=== PATIENT | male | born 1945 | race Caucasian/White ===

== ENCOUNTER → 2023-09-26 09:47 | Outpatient (REF) | payer MEDICARE, SELFPAY ==
[2023-09-26 10:31] LABS: % Eosinophils 1.5 % (0-6); % Immature Granulocytes 0.2 % (0-0.5); % Lymphocytes 37.6 % (20.5-51.1); % Monocytes 7.9 % (1.7-9.3); % Neutrophils 52.8 % (42.2-75.2); Absolute Eosinophils 0.1 10^3/uL (0-0.7); Absolute Lymphocytes 1.8 10^3/uL (1.2-3.4); Absolute Monocytes 0.4 10^3/uL (0.1-0.6); Absolute Neutrophils 2.5 10^3/uL (1.4-6.5); Hematocrit 41.9 % (39.0-52.0); Hemoglobin 14.4 g/dL (13.0-18.0); Mean Corp Hgb Conc. 34.4 g/dL (33.0-37.0); Mean Corpuscular Hgb 32.6 pg (27.0-31.0); Mean Corpuscular Volume 94.8 fL (80.0-94.0); Mean Platelet Volume 9.5 fL (7.4-10.4); Nucleated Red Blood Cells % 0 % (-); Platelet Count 185 10^3/uL (130-400); Red Blood Cell Count 4.42 10^6/uL (4.70-6.10); Red Cell Dist. Width 12.4 % (11.5-14.5); White Blood Cell Count 4.7 10^3/uL (4.8-10.8)
[2023-09-26 10:53] LABS: Urine Albumin Negative (Neg - Trace); Urine Bilirubin Negative (Negative); Urine Character Clear (Clear); Urine Color Yellow; Urine Glucose Negative (Negative); Urine Ketone Negative (Negative); Urine Leukocyte Negative (Negative); Urine Nitrite Negative (Negative); Urine Occult Blood Negative (Negative); Urine Specific Gravity 1.015 (<1.030); Urine Urobilinogen Negative (Neg - 1+)
[2023-09-26 10:59] LABS: ALT (SGPT) 34 U/L (0-50); AST (SGOT) 38 U/L (17-59); Albumin 4.3 g/dl (3.5-5.0); Alkaline Phosphatase 56 U/L (38-126); Blood Urea Nitrogen 22 mg/dl (9-20); Calcium 8.9 mg/dl (8.4-10.2); Carbon Dioxide 26 mmol/L (22-30); Chloride 103 mmol/L (98-107); Glucose 96 mg/dl (70-99); HDL Cholesterol 38 mg/dl; LDL Cholesterol, Calculated 180 mg/dl; Potassium 4.7 mmol/L (3.5-5.1); Sodium 135 mmol/L (135-145); Total Bilirubin 0.8 mg/dl (0.2-1.3); Total Cholesterol 241 mg/dl (50-199); Total Protein 6.7 g/dl (6.3-8.2); Triglyceride 116 mg/dl (10-149); Very Low Density Lipoprotein 23 mg/dl (0-30); eGFR > 60.00
[2023-09-26 11:32] LABS: TSH 2.54 uIU/ml (0.47-4.68)
== END ==
LOC: REG 09:47
PROVIDERS: ATTENDING PHYSICIAN Internal Medicine
DX: I10 Essential (primary) hypertension (principal); E78.2 Mixed hyperlipidemia; I48.0 Paroxysmal atrial fibrillation; R42 Dizziness and giddiness
CPT/HCPCS: 36415; 80053; 80061; 81003; 84443; 85025

== ENCOUNTER 2023-11-25 08:44 | Inpatient (IN) | payer MEDICARE, SELFPAY ==
[2023-11-25] VITALS (7 sets, daily range): BP systolic 123–159; BP diastolic 71–97; BMI 30.1
--- NOTE | 2023-11-25 09:31 | W.PN.CARDCBS ---
Addendum entered and electronically signed by Keshav Davila MD 11/25/23 15:00:
He has a complex past medical history which includes both atrial fibrillation and mitral regurgitation.
He was initially evaluated for atrial fibrillation in 2011.
- ECHO 2011 found to have severe mitral regurgitation with flow reversal in the pulmonary veins observed. He was referred for cardiothoracic surgery.
- ORLIN (intra-op) October 2011 demonstrated prolapsed posterior mitral leaflet in the P2 segment, redundant chordae in the submitral apparatus, especially the chordae attached to anterior mitral leaflet. No flail is seen on the study. There is a mild
mitral regurgitation at best with a systolic blood pressure of 130 mmHg. Dilated mitral annulus, it measures 3.6 cm in long axis view, 5 cm in the commissural view. When the blood pressure was brought up to 170/80, the mitral regurgitation became
mild to moderate with a vena contracta 0.33 cm. No evidence of systolic flow reversal in pulmonary veins. Because intra-op ORLIN failed to demonstrate significant MR, surgery was not performed.
He subsequently underwent PVI November 30, 2011.
- TTE September 22, 2014 demonstrated mildly dilated left atrium bileaflet mitral valve prolapse with posterior being more prominent and again moderate to severe mitral regurgitation being noted by transthoracic echocardiogram.
LV Diastolic Diameter 5.6 cm and LV Systolic Diameter 3.8 cm
- TTE October 12, 2015 finds normal left ventricular size and function, EF 55 to 60%. Bileaflet mitral valve prolapse with the posterior leaflet being more prominent. Probably moderate mitral regurgitation.
LV Diastolic Diameter 5.1 cm and LV Systolic Diameter 3.2 cm
- TTE December 10, 2017 finds normal left ventricular size and function ejection fraction 55%. Mildly dilated left atrium and mildly dilated right atrium. Bileaflet mitral valve prolapse with mild to moderate mitral regurgitation.
LV Diastolic Diameter 5.0 cm and LV Systolic Diameter 3.4 cm
- TTE March 29, 2020 finds normal LV size and function. Bileaflet mitral prolapse with moderate which regurgitation. Left atrium is mildly dilated
LV Diastolic Diameter 5.9 cm and LV Systolic Diameter 3.9 cm
He underwent coronary artery bypass grafting surgery May 05, 2020.
- ORLIN IntraOp for his coronary bypass grafting surgery demonstrated LVEF of 40-45% with redundant bileaflet prolapse. Mitral valve annulus is noted to be markedly dilated. Mitral regurgitation was assessed at mild to moderate.
- TTE June 21, 2020 (Post-op CABG) finds overall preserved LVEF with anterior and anteroseptal hypokinesis felt to be postoperative state, LVEF 55 to 60%.
LV Diastolic Diameter 5.8 cm and LV Systolic Diameter 3.9 cm
He recurred with atrial fibrillation and underwent EP study and ablation June 25, 2022 reisolating the pulmonary veins.
Due to recurrences he again underwent left-sided mapping and ablation isolating the pulmonary veins and isolating the posterior wall of the left atrium 2022
Due to recurrences of atrial fibrillation he is now admitted for sotalol loading. He is more short of breath. He has been in atrial fibrillation for at least several weeks now. He presents with some component of decompensated heart failure.
- TTE today November 25, 2023 finds normal LV EF at 60 to 65%. There is now severe left atrial and right atrial dilatation. Mitral regurgitation is noted to be moderate to severe.
LV Diastolic Diameter 5.5 cm and LV Systolic Diameter 3.5 cm. LV wall thickness is measured at 1.3 and 1.4 cm.
Patient seen, interviewed and examined by me.
Well-appearing, no acute distress
Irregular rate and rhythm with normal S1 and S2, no S3 no S4. There is a grade 1/6 apical holosystolic murmur and no rubs. PMI is normally placed.
Lungs are clear to auscultation bilaterally without wheezes rales or rhonchi.
Abdomen soft nontender nondistended with normoactive bowel sounds
Extremities show trace pretibial edema bilaterally no clubbing or cyanosis.
Neurologic exam is grossly nonfocal.
Agree with advanced practice professionals assessment and plan as noted below.
Going forward we will plan for diuresis for acute decompensated HFpEF which is likely been precipitated by atrial fibrillation. However given his known mitral valve disease it is possible that mitral regurgitation is playing a role as well. Will
plan for diuresis, sotalol loading and then cardioversion. Once we have obtained and if we can maintain sinus rhythm we will need to be reassessment of his mitral regurgitation with consideration for intervention either transcatheter or surgical.
Given his prior coronary artery bypass grafting surgery a transcatheter approach rather than a reoperative may be preferable if ultimately clinically indicated and feasible.
ECG today atrial fibrillation at a heart rate of 52 bpm corrected QT interval is 450 ms
Echocardiogram today with LVH but wall thickness less than 1.5 cm.
Will proceed with sotalol loading, hold beta-clarita.
Original Note:
Today's Communication / Plan
-
Start sotalol 120 mg BID now
Check pro-BNP
Impression / Plan
-
Primary Care Provider: Dr. Adler
Primary Ham Smoker: Dr. Pepe Davila
IMPRESSION:
Direct admission for sotalol loading
Persistent Afib
s/p PVI 11/30/11
post-op CABG recurred with Afib, previous therapy with propafenone stopped due to ineffectiveness 04/2020
s/p PVI 06/25/22
s/p PVI 11/21/22
Chronic Xarelto OAC
HTN
Increased LE edema and HANSEN
CAD s/p CABG with FLORES to LAD, SVG to OM1 05/05/2020
Moderate to severe MR by echo 06/21/20
Hyperlipidemia
h/o myalgias/weakness with simvastatin and Lipitor
Factor V Leiden
History of DVT
Echocardiogram 04/18/2020: Ejection fraction 50%, bileaflet mitral valve prolapse with moderate MR
Echo 06/21/20: EF 55-60%, stage I diastolic dysfunction, mod to sev eccentric MR, mild TR, dilated aortic root with Sinus of Valsalva measuring 4.4 cm., sinotubular junction measures 4.2 cm.; ascending aorta measures 4.0 cm.
PLAN:
-Patient came to today for direct admission for sotalol loading for persistent Afib. Patient with previous PVI 11/30/11 and then recurred after CABG 04/2020 and was managed with amiodarone for a period of time and then it was stopped. He then had
a recurrent PVI 06/25/22. He recurred with Afib and had another PVI 11/21/22. Most recently he has recurred with Afib and does not always feel palpitations, but feels SOB, HANSEN and sometimes still feels palpitations. He says he is tired. He has
increased LE edema that is worse following discontinuation of HCTZ at last office visit 10/31/23. No orthopnea.
-Start sotalol 120 mg BID
-Labs including CMP and CBC pending. Will add on pro-BNP.
-Increased LE edema without rales and no orthopnea. Await results of pro-BNP. Patient reports LE edema is worse after stopping HCTZ almost 1 month ago. Consider a dose of Lasix pending labs.
-QTc 446 in Afib on ECG reviewed by me.
-No missed doses of Xarelto which he takes for Afib and also for h/o Factor V Leiden and DVT.
-Will plan on CV on Saturday if he does not spontaneously convert
-HTN initially this AM, he missed his dose of Toprol XL 50 mg this AM, will order now
Progress Note - Ham Smoker
Subjective
Date of Service: November 25, 2023
He feels fine at rest, but has HANSEN with walking
Objective
Labs:
Ordered CMP, CBC and pro-BNP, pending
Vital Signs and I&O:
Vital Signs
Temp Pulse Resp BP Pulse Ox
98.2 F 86 18 159/85 98
11/25/23 09:04 11/25/23 09:04 11/25/23 09:04 11/25/23 09:04 11/25/23 09:04
Vital Signs
Temp Pulse Resp BP Pulse Ox
98.2 F 86 18 159/85 98
11/25/23 09:04 11/25/23 09:04 11/25/23 09:04 11/25/23 09:04 11/25/23 09:04
Physical Exam
Physical Exam
GEN: NAD, AAOx3
HEENT: EOMI, MMM
LUNGS: CTA B/L without rales
CV: Irreg irreg, S1/S2, no murmur
ABD: soft, BS+, NT, ND
EXT: +1 B/L LE edema
NEURO: Gross non-focal
SKIN: Warm, dry and pink. No rash
[2023-11-25 09:58] LABS: Hematocrit 37.2 % (39.0-52.0); Hemoglobin 12.9 g/dL (13.0-18.0); Mean Corp Hgb Conc. 34.7 g/dL (33.0-37.0); Mean Corpuscular Hgb 32.2 pg (27.0-31.0); Mean Corpuscular Volume 92.8 fL (80.0-94.0); Mean Platelet Volume 10.4 fL (7.4-10.4); Platelet Count 197 10^3/uL (130-400); Red Blood Cell Count 4.01 10^6/uL (4.70-6.10); Red Cell Dist. Width 13.6 % (11.5-14.5)
--- NOTE | 2023-11-25 10:07 | PTCARENOTE ---
patient is a direct admit, notified Salome SALCIDO. patient placed on monitor, Afib, BP 159/85. INT placed in left arm #22P, blood work drawn and sent to lab. EKG done. patient oriented to room and surroundings.
[2023-11-25 10:37] LABS: NT-proBNP 3050 pg/ml
[2023-11-25 10:51] LABS: ALT (SGPT) 47 U/L (0-50); AST (SGOT) 41 U/L (17-59); Albumin 3.9 g/dl (3.5-5.0); Alkaline Phosphatase 57 U/L (38-126); Blood Urea Nitrogen 23 mg/dl (9-20); Calcium 9.2 mg/dl (8.4-10.2); Carbon Dioxide 28 mmol/L (22-30); Chloride 105 mmol/L (98-107); Estimated Creatinine Clearance 78 ml/min; Glucose 84 mg/dl (70-99); Magnesium 1.8 mg/dl (1.6-2.3); Potassium 4.9 mmol/L (3.5-5.1); Sodium 135 mmol/L (135-145); Total Bilirubin 0.6 mg/dl (0.2-1.3); Total Protein 6.2 g/dl (6.3-8.2); eGFR > 60.00
[2023-11-25] MEDS: TOPROL XL 50 MG PO (11:16)
[2023-11-25] MEDS: BETAPACE 120 MG PO ×2 (11:16→22:43)
--- NOTE | 2023-11-25 11:19 | PTCARENOTE ---
echo being completed at bedside.
--- NOTE | 2023-11-25 12:18 | CM ---
spoke with pt in room, he is prev indep, lives with his s.o. in a 2 story homewith 4 steps to enter. he has a cane at home to use if needed. he denies any dc planning needs. plan is for dc to home when medically stable.
--- NOTE | 2023-11-25 14:53 | PTCARENOTE ---
on monitor patient showing HR dipping in the 30's, with pauses, asymptomatic. BP 124/77, EKG obtained and QTC 450. eneida SALCIDO aware.
--- NOTE | 2023-11-25 16:29 | W.PN.UPDATE ---
Update Note
Progress Note Update
Tele reviewed and patient with less than 2 second pauses. ECG 2 hours after first dose of sotalol 120 mg BID the QTc was 450 ms. Cont sotalol 120 mg BID. Decreased Toprol XL to 25 mg daily starting in AM. If more bradycardic or symptomatic then
might need to stop Toprol XL.
[2023-11-25] MEDS: LASIX 20 MG IV (16:50)
[2023-11-25] MEDS: FLUSH (NSS) 1 FLUSH IV (16:52)
[2023-11-25] MEDS: XARELTO 20 MG PO (17:29)
[2023-11-26] VITALS (8 sets, daily range): BP systolic 93–146; BP diastolic 60–95; BMI 29.5
--- NOTE | 2023-11-26 01:39 | PTCARENOTE ---
Sotalol dose #2 administered. Ekg obtained. QTc 488. Tele remains afib. HR 40-60s. Offers no c/o at this time. Currently in bed; call nayla w/in reach.
[2023-11-26 02:27] LABS: Blood Urea Nitrogen 26 mg/dl (9-20); Calcium 9.1 mg/dl (8.4-10.2); Carbon Dioxide 27 mmol/L (22-30); Chloride 103 mmol/L (98-107); Estimated Creatinine Clearance 78 ml/min; Glucose 104 mg/dl (70-99); Potassium 4.2 mmol/L (3.5-5.1); Sodium 137 mmol/L (135-145); eGFR > 60.00
--- NOTE | 2023-11-26 07:46 | W.PN.CARDCBS ---
Addendum entered and electronically signed by Emerson Medina MD 11/26/23 12:01:
I saw and examined the patient.
The SLIP COVER ESTIMATOR or PA's note was reviewed and I agree with the note.
Comment: General: Well developed, well nourished in NAD.
Neck: Supple, no JVD, HJR, carotids +2 B/L, no bruits bilaterally.
Heart: Non displaced PMI, Irreg,, no murmurs, No S3, S4, no rubs.
Lungs: Clear to auscultation bilaterally, no wheeze, rhonchi, rubs bilaterally,
normal expiratory phase.
Extremities: No clubbing, cyanosis or edema bilaterally.
Neuro: Grossly nonfocal, awake, alert and oriented x3.
He is doing well. Tolerating sotalol load remains in A-fib. Will give an additional dose of Lasix 40 mg IV now. For cardioversion on 11/26 and discharge afterwards.
Original Note:
Today's Communication / Plan
-
Lasix 40 mg IV x1 now
Adding tubigrips
Cont sotalol 120 mg BID
CV in AM
Impression / Plan
-
Primary Care Provider: Dr. Adler
Primary Invoice Clerk: Dr. Pepe Davila
IMPRESSION:
Direct admission for sotalol loading
Persistent Afib
s/p PVI 11/30/11
post-op CABG recurred with Afib, previous therapy with propafenone stopped due to ineffectiveness 04/2020
s/p PVI 06/25/22
s/p PVI 11/21/22
Chronic Xarelto OAC
HTN
Increased LE edema and HANSEN
CAD s/p CABG with FLORES to LAD, SVG to OM1 05/05/2020
Moderate to severe MR by echo 06/21/20
Hyperlipidemia
h/o myalgias/weakness with simvastatin and Lipitor
Factor V Leiden
History of DVT
Acute HFpEF
Echo 04/18/20: Ejection fraction 50%, bileaflet mitral valve prolapse with moderate MR
Echo 06/21/20: EF 55-60%, stage I diastolic dysfunction, mod to sev eccentric MR, mild TR, dilated aortic root with Sinus of Valsalva measuring 4.4 cm., sinotubular junction measures 4.2 cm.; ascending aorta measures 4.0 cm.
Echo 11/25/23: EF 60-65%, severe biatrial dilatation, mod to sev MR, mild aortic insufficiency, mod TR with PAP 55-60 mmHg
PLAN:
-Patient with increased LE edema and HANSEN on admission for sotalol loading. HCTZ had been stopped at 10/31/23 office visit. Checked pro-BNP that was elevated at 3050. Patient was given Lasix 20 mg IV x1 11/25/23 afternoon and weight is down 5 lbs
overnight, but no reported symptomatic improvement. Cre stable at 1.0 so will give another dose of Lasix 40 mg IV x1 on 11/26/23 AM.
-Salt and fluid restrictions added to diet
-Potassium stable at 4.2. Check BMP in AM
-Overnight tele reviewed and patient with ongoing Afib and slow ventricular escape, no significant pauses
-Outpatient dose of Toprol XL stopped 11/25/23 due to bradycardia
-Cont sotalol 120 mg BID. QTc stable at 488 ms by ECG 2 hours after second dose that was given 11/25/23 PM
-No missed doses of Xarelto which he takes for Afib and also for h/o Factor V Leiden and DVT.
-Will plan on CV on Saturday if he does not spontaneously convert
-BP stable with usual dose of lisinopril 40 mg daily. Follow BP now that Toprol XL has been stopped
HPI: Patient came to today for direct admission for sotalol loading for persistent Afib. Patient with previous PVI 11/30/11 and then recurred after CABG 04/2020 and was managed with amiodarone for a period of time and then it was stopped. He then
had a recurrent PVI 06/25/22. He recurred with Afib and had another PVI 11/21/22. Most recently he has recurred with Afib and does not always feel palpitations, but feels SOB, HANSEN and sometimes still feels palpitations. He says he is tired. He has
increased LE edema that is worse following discontinuation of HCTZ at last office visit 10/31/23. No orthopnea.
Progress Note - Invoice Clerk
Subjective
Date of Service: November 26, 2023
He is worried about LE edema
Objective
Labs:
11/25/23 09:41
11/26/23 01:34
Labs
Hgb 12.9 g/dL (13.0-18.0) L 11/25/23 09:41
Hct 37.2 % (39.0-52.0) L 11/25/23 09:41
Plt Count 197 10^3/uL (130-400) 11/25/23 09:41
Sodium 137 mmol/L (135-145) 11/26/23 01:34
Potassium 4.2 mmol/L (3.5-5.1) 11/26/23 01:34
BUN 26 mg/dl (9-20) H 11/26/23 01:34
Creatinine 1.0 mg/dL (0.7-1.3) 11/26/23 01:34
Glucose 104 mg/dl (70-99) H 11/26/23 01:34
Vital Signs and I&O:
Vital Signs
Temp Pulse Resp BP Pulse Ox
98.5 F 61 16 133/80 96
11/26/23 01:38 11/26/23 01:30 11/26/23 01:38 11/26/23 01:27 11/26/23 01:38
Vital Signs
Temp Pulse Resp BP Pulse Ox
98.5 F 61 16 133/80 96
11/26/23 01:38 11/26/23 01:30 11/26/23 01:38 11/26/23 01:27 11/26/23 01:38
Intake & Output
11/24/23 11/25/23 11/26/23 11/27/23
06:59 06:59 06:59 06:59
Intake Total 240 / 240
Output Total 2800 / 2800
Balance -2560 / -2560
Physical Exam
Physical Exam
GEN: AAOx3
HEENT: EOMI
LUNGS: No audible wheeze
CV: Afib on tele
ABD: ND
EXT: +1 B/L LE edema
NEURO: Gross non-focal
SKIN: No rash
[2023-11-26] MEDS: THERAGRAN 1 TABLET PO (08:15)
[2023-11-26] MEDS: ASPIR LOW (ENTERIC COATED) 81 MG PO (08:15)
[2023-11-26] MEDS: ZESTRIL 40 MG PO (08:15)
[2023-11-26] MEDS: BETAPACE 120 MG PO (10:00)
[2023-11-26] MEDS: LASIX 40 MG IV (10:00)
[2023-11-26] MEDS: XARELTO 20 MG PO (17:17)
--- NOTE | 2023-11-26 18:00 | PTCARENOTE ---
Pt remains in controlled afib, rate in the 50's to 70's. Denies any chest pain or sob. OOB ad jamal in the room. Tubigrips applied to lower legs as ordered.
--- NOTE | 2023-11-26 21:36 | W.PN.UPDATE ---
Update Note
Progress Note Update
-per Dr. Davila, tonight's dose of Sotalol was held and am dose decreased to 80 mg d/t bradycardia 50s.
--- NOTE | 2023-11-26 23:00 | PTCARENOTE ---
Pt.'s HR running high 40's to mid 50's at rest (A-fib) and occasionally dipping into the high 30's (asymptomatic). SBP 93-108. Pt. due for sotalol. Dr. Pepe Davila, notified, instructed to hold tonight's dose and decrease to 80mg in AM.
Orders entered by Nato Gonzalez PA. Pt. resting quietly without any complaints.
[2023-11-27 02:53] VITALS: BP 135/83
[2023-11-27 03:08] VITALS: BMI 29.1
[2023-11-27 03:42] LABS: Blood Urea Nitrogen 31 mg/dl (9-20); Calcium 9.1 mg/dl (8.4-10.2); Carbon Dioxide 26 mmol/L (22-30); Chloride 102 mmol/L (98-107); Estimated Creatinine Clearance 78 ml/min; Glucose 97 mg/dl (70-99); Sodium 134 mmol/L (135-145); eGFR > 60.00
[2023-11-27 06:58] VITALS: BP 139/92
--- NOTE | 2023-11-27 08:21 | W.PN.UPDATE ---
Update Note
Progress Note Update
unsuccssful cardioversion attempts x 3 ( 200.360, 360). Reviewed with Dr Keshav Davila who was present for third attempt.
Tx plan being coordinated by Dr Davila
--- NOTE | 2023-11-27 09:05 | W.PN.CARDCBS ---
Today's Communication / Plan
-
ORLIN in AM
Stop sotalol
Impression / Plan
-
Primary Care Provider: Dr. Adler
Primary Pattern Ruler: Dr. Pepe Davila
IMPRESSION:
Direct admission for sotalol loading
sotalol loaded with 4 doses and then stopped due to unsuccessful CV 11/27/23
Persistent Afib
s/p PVI 11/30/11
post-op CABG recurred with Afib, previous therapy with propafenone stopped due to ineffectiveness 04/2020
s/p PVI 06/25/22
s/p PVI 11/21/22
unsuccessful CV 11/27/23
Chronic Xarelto OAC
HTN
Increased LE edema and HANSEN
CAD s/p CABG with FLORES to LAD, SVG to OM1 05/05/2020
Moderate to severe MR by echo 06/21/20
Hyperlipidemia
h/o myalgias/weakness with simvastatin and Lipitor
Factor V Leiden
History of DVT
Acute HFpEF
Echo 04/18/20: Ejection fraction 50%, bileaflet mitral valve prolapse with moderate MR
Echo 06/21/20: EF 55-60%, stage I diastolic dysfunction, mod to sev eccentric MR, mild TR, dilated aortic root with Sinus of Valsalva measuring 4.4 cm., sinotubular junction measures 4.2 cm.; ascending aorta measures 4.0 cm.
Echo 11/25/23: EF 60-65%, severe biatrial dilatation, mod to sev MR, mild aortic insufficiency, mod TR with PAP 55-60 mmHg
PLAN:
-Patient initially loaded with sotalol 120 mg BID starting 11/25/23 AM. QTc initially stable, but then up to 501 ms after 3rd dose of sotalol given Saturday morning. Sotalol dose held Saturday night and then restarted at 80 mg on Saturday
morning. Patient then had attempted CV x3 shocks in photo lab manager holding area and failed to convert.
-Will stop sotalol now
-Restart lower dose Toprol XL 25 mg daily and hold for HR less than 55.
-Cont Xarelto OAC
-Patient with increased LE edema and HANSEN on admission for sotalol loading. HCTZ had been stopped at 10/31/23 office visit. pro-BNP was elevated at 3050. Patient was given Lasix 20 mg IV x1 11/25/23 afternoon and 40 mg IV x1 on 11/26/23. Overall weight is
down 9 lbs from admission. Cre stable at 1.0.
-BP stable with usual dose of lisinopril 40 mg daily.
-Patient with h/o severe MR by echo in 2011 and intra-op ORLIN 10/2011 demonstrated prolapsed posterior mitral leaflet in the P2 segment, redundant chordae in the submitral apparatus, especially the chordae attached to anterior mitral leaflet. No
flail wass seen on the study. When the blood pressure was brought up to 170/80, the mitral regurgitation became mild to moderate with a vena contracta 0.33 cm. No evidence of systolic flow reversal in pulmonary veins. Ultimately, because intra-op
ORLIN failed to demonstrate significant MR, surgery was not performed. TTE 09/2014 showed mod to sev MR with bileaflet MVP with posterior being more prominent. Patient then had CABG 05/05/20 and intra-op ORLIN at that time showed redundant bileaflet
prolapse, mitral valve annulus markedly dilated and mild to mod MR. With HF on admission his TTE was repeated this admission and EF preserved, but there is now severe left atrial and right atrial dilatation and mod to sev MR.
-Will order ORLIN for AM
HPI: Patient came to today for direct admission for sotalol loading for persistent Afib. Patient with previous PVI 11/30/11 and then recurred after CABG 04/2020 and was managed with amiodarone for a period of time and then it was stopped. He then
had a recurrent PVI 06/25/22. He recurred with Afib and had another PVI 11/21/22. Most recently he has recurred with Afib and does not always feel palpitations, but feels SOB, HANSEN and sometimes still feels palpitations. He says he is tired. He has
increased LE edema that is worse following discontinuation of HCTZ at last office visit 10/31/23. No orthopnea.
Progress Note - Pattern Ruler
Subjective
Date of Service: November 27, 2023
Still with some edema
Objective
Labs:
11/25/23 09:41
11/27/23 03:00
Labs
Hgb 12.9 g/dL (13.0-18.0) L 11/25/23 09:41
Hct 37.2 % (39.0-52.0) L 11/25/23 09:41
Plt Count 197 10^3/uL (130-400) 11/25/23 09:41
Sodium 134 mmol/L (135-145) L 11/27/23 03:00
Potassium 4.0 mmol/L (3.5-5.1) 11/27/23 03:00
BUN 31 mg/dl (9-20) H 11/27/23 03:00
Creatinine 1.0 mg/dL (0.7-1.3) 11/27/23 03:00
Glucose 97 mg/dl (70-99) 11/27/23 03:00
Vital Signs and I&O:
Vital Signs
Temp Pulse Resp BP Pulse Ox
98.1 F 67 18 139/92 95
11/27/23 07:05 11/27/23 07:00 11/27/23 07:05 11/27/23 06:58 11/27/23 02:52
Vital Signs
Temp Pulse Resp BP Pulse Ox
98.1 F 67 18 139/92 95
11/27/23 07:05 11/27/23 07:00 11/27/23 07:05 11/27/23 06:58 11/27/23 02:52
Intake & Output
11/25/23 11/26/23 11/27/23 11/28/23
06:59 06:59 06:59 06:59
Intake Total 240 / 240 480 / 480
Output Total 2800 / 2800 4400 / 4400
Balance -2560 / -2560 -3920 / -3920
Physical Exam
Physical Exam
GEN: AAOx3
HEENT: EOMI
LUNGS: No audible wheeze
CV: Afib on tele
ABD: ND
EXT: +1 B/L LE edema
NEURO: Gross non-focal
SKIN: No rash
[2023-11-27] MEDS: THERAGRAN 1 TABLET PO (09:08)
[2023-11-27] MEDS: ASPIR LOW (ENTERIC COATED) 81 MG PO (09:08)
[2023-11-27] MEDS: ZESTRIL 40 MG PO (10:02)
[2023-11-27 12:13] VITALS: BP 99/68
--- NOTE | 2023-11-27 12:39 | CM ---
CM following for DC planning needs.
Reviewed initial assessment. Pt. resides w/ sig. other in a private, 2 story home. Functionally, pt. is indep w/ use of a SPC.
DC plan is for home, no needs.
CM to cont. to follow.
[2023-11-27 14:32] VITALS: BP 104/71
[2023-11-27] MEDS: XARELTO 20 MG PO (17:09)
--- NOTE | 2023-11-27 17:34 | PTCARENOTE ---
Pt returned from the cardioversion in afib, rate in the 60's to 70's. Pt scheduled to ORLIN tomorrow. Sotolol stopped as ordered. Pt denies any chest pain or sob. OOb ad jamal in the room.
[2023-11-27 19:34] VITALS: BP 116/77
--- NOTE | 2023-11-27 21:41 | PTCARENOTE ---
Assumed care of patient at change of shift. Patient ambulating self in room w/out difficulty. Tele remains Afib, HR in the 50-60's at rest. Denies any pain or discomfort. Pt aware to remain NPO at midnight for ECHO/ORLIN on 11/27. Pt can make all needs
known, call winslow in reach.
[2023-11-27 22:24] VITALS: BP 121/73
[2023-11-28 04:29] VITALS: BP 124/91
[2023-11-28 04:33] VITALS: BMI 29.0
[2023-11-28 07:37] VITALS: BP 130/95
--- NOTE | 2023-11-28 07:38 | W.PN.CARDCBS ---
Addendum entered and electronically signed by Elma Abarca DO 11/28/23 18:20:
I saw and examined the patient.
The System Auditor's note was reviewed and I agree with the note.
Comment: Patient was seen and examined prior to scheduled ORLIN to assess mitral and tricuspid regurgitation. Overall he is feeling better with improved shortness of breath and lower extremity edema. No chest pain or pressure. No palpitations.
Consent signed. ORLIN performed without complications.
General: No acute distress, AAOX3
Neck: Negative JVD
Heart: Irregularly irregular. Positive S1-S2. 2�3 out of 6 systolic murmur heard best at the axilla/back
Lungs: CTA b/l, negative wheezes/rales/rhonchi
Abd: Positive BS, NT/ND, neg rebound/rigidity/guarding
Ext: Negative cyanosis/clubbing/edema
Neuro: nonfocal
Plan:
Presented for sotalol loading for recurrent symptomatic atrial fibrillation
-Unfortunately sotalol discontinued after load due to unsuccessful cardioversion 11/27/2023
-Continue Eliquis anticoagulation
Known mitral valve prolapse with moderate to severe mitral regurgitation and moderate tricuspid regurgitation now with heart failure
-Given recent 2D echocardiogram patient was set up for transesophageal echo today.
-Bileaflet mitral valve prolapse with dilated annulus associated with severe mitral regurgitation with overall preserved biventricular systolic function. Patient also has moderate tricuspid regurgitation and aortic sclerosis with mild aortic
regurgitation.
-Transesophageal echo reviewed with CT surgery and consultation with CT surgery scheduled for next week to discuss surgical options
CAD s/p CABG with FLORES to LAD, SVG to OM1 05/05/2020
-Will need a left heart catheterization as part of preoperative CT surgical evaluation which will be scheduled by our office
New heart failure with preserved ejection fraction status post Lasix with improved symptoms
-He appears euvolemic following IV Lasix
-Start Lasix 20 mg Saturday
-Referred to CT surgery for mitral valve repair, possible tricuspid valve ring, maze and left atrial appendage ligation
History of DVT and factor V Leiden on anticoagulation.
-Noted
Plan for discharge home today with outpatient follow-up being arranged
Original Note:
Today's Communication / Plan
-
ORLIN today
Weight down 9 lbs, no additional Lasix today
Impression / Plan
-
Primary Care Provider: Dr. Adler
Primary Background Check Coordinator: Dr. Pepe Davila
IMPRESSION:
Direct admission for sotalol loading
sotalol loaded with 4 doses and then stopped due to unsuccessful CV 11/27/23
Persistent Afib
s/p PVI 11/30/11
post-op CABG recurred with Afib, previous therapy with propafenone stopped due to ineffectiveness 04/2020
s/p PVI 06/25/22
s/p PVI 11/21/22
unsuccessful CV 11/27/23
Chronic Xarelto OAC
HTN
Increased LE edema and HANSEN
CAD s/p CABG with FLORES to LAD, SVG to OM1 05/05/2020
Moderate to severe MR by echo 06/21/20
Hyperlipidemia
h/o myalgias/weakness with simvastatin and Lipitor
Factor V Leiden
History of DVT
Acute HFpEF
Echo 04/18/20: Ejection fraction 50%, bileaflet mitral valve prolapse with moderate MR
Echo 06/21/20: EF 55-60%, stage I diastolic dysfunction, mod to sev eccentric MR, mild TR, dilated aortic root with Sinus of Valsalva measuring 4.4 cm., sinotubular junction measures 4.2 cm.; ascending aorta measures 4.0 cm.
Echo 11/25/23: EF 60-65%, severe biatrial dilatation, mod to sev MR, mild aortic insufficiency, mod TR with PAP 55-60 mmHg
PLAN:
-Plan is for ORLIN 11/28/23
-Patient with h/o severe MR by echo in 2011 and intra-op ORLIN 10/2011 demonstrated prolapsed posterior mitral leaflet in the P2 segment, redundant chordae in the submitral apparatus, especially the chordae attached to anterior mitral leaflet. No
flail wass seen on the study. When the blood pressure was brought up to 170/80, the mitral regurgitation became mild to moderate with a vena contracta 0.33 cm. No evidence of systolic flow reversal in pulmonary veins. Ultimately, because intra-op
ORLIN failed to demonstrate significant MR, surgery was not performed. TTE 09/2014 showed mod to sev MR with bileaflet MVP with posterior being more prominent. Patient then had CABG 05/05/20 and intra-op ORLIN at that time showed redundant bileaflet
prolapse, mitral valve annulus markedly dilated and mild to mod MR. With HF on admission his TTE was repeated this admission and EF preserved, but there is now severe left atrial and right atrial dilatation and mod to sev MR.
-Patient loaded with sotalol this admission, but failed to convert with attempted CV x3 on 11/27/23. Sotalol stopped.
-Restart lower dose Toprol XL 12.5 mg daily and hold for HR less than 55.
-Cont Xarelto OAC
-Weight is down 9 lbs with Lasix 20 mg IV x1 11/25/23 afternoon and 40 mg IV x1 on 11/26/23. Patient with increased LE edema and HANSEN on admission for sotalol loading. HCTZ had been stopped at 10/31/23 office visit. pro-BNP was elevated at 3050.
-BP stable with usual dose of lisinopril 40 mg daily.
HPI: Patient came to today for direct admission for sotalol loading for persistent Afib. Patient with previous PVI 11/30/11 and then recurred after CABG 04/2020 and was managed with amiodarone for a period of time and then it was stopped. He then
had a recurrent PVI 06/25/22. He recurred with Afib and had another PVI 11/21/22. Most recently he has recurred with Afib and does not always feel palpitations, but feels SOB, HANSEN and sometimes still feels palpitations. He says he is tired. He has
increased LE edema that is worse following discontinuation of HCTZ at last office visit 10/31/23. No orthopnea.
Progress Note - Background Check Coordinator
Subjective
Date of Service: November 28, 2023
He feels less bloated and LE edema has improved
Objective
Labs:
11/25/23 09:41
11/27/23 03:00
Labs
Hgb 12.9 g/dL (13.0-18.0) L 11/25/23 09:41
Hct 37.2 % (39.0-52.0) L 11/25/23 09:41
Plt Count 197 10^3/uL (130-400) 11/25/23 09:41
Sodium 134 mmol/L (135-145) L 11/27/23 03:00
Potassium 4.0 mmol/L (3.5-5.1) 11/27/23 03:00
BUN 31 mg/dl (9-20) H 11/27/23 03:00
Creatinine 1.0 mg/dL (0.7-1.3) 11/27/23 03:00
Glucose 97 mg/dl (70-99) 11/27/23 03:00
Vital Signs and I&O:
Vital Signs
Temp Pulse Resp BP Pulse Ox
97.9 F 66 20 124/91 95
11/28/23 04:28 11/28/23 04:29 11/28/23 04:28 11/28/23 04:29 11/28/23 04:28
Vital Signs
Temp Pulse Resp BP Pulse Ox
97.9 F 66 20 124/91 95
11/28/23 04:28 11/28/23 04:29 11/28/23 04:28 11/28/23 04:29 11/28/23 04:28
Intake & Output
11/26/23 11/27/23 11/28/23 11/29/23
06:59 06:59 06:59 06:59
Intake Total 240 / 240 480 / 480 480 / 480
Output Total 2800 / 2800 4400 / 4400 2049 / 2049
Balance -2560 / -2560 -3920 / -3920 -1570 / -1570
Physical Exam
Physical Exam
GEN: AAOx3
HEENT: EOMI
LUNGS: No audible wheeze
CV: Afib on tele
ABD: ND
EXT: Trace B/L LE edema
NEURO: Gross non-focal
SKIN: No rash
[2023-11-28] MEDS: ZESTRIL 40 MG PO (07:56)
[2023-11-28] MEDS: ASPIR LOW (ENTERIC COATED) 81 MG PO (07:57)
[2023-11-28] MEDS: TOPROL XL 12.5 MG PO (07:57)
--- NOTE | 2023-11-28 11:12 | CM ---
CM following for DC planning needs.
Attempted to meet w/ patient but patient was not in his room.
Pt. is from a private home with sig. other.
Anticipated DC plan is for home, no needs.
CM to follow.
[2023-11-28 11:15] VITALS: BP 115/82
[2023-11-28] MEDS: THERAGRAN 1 TABLET PO (14:34)
--- NOTE | 2023-11-28 14:37 | W.DS.TRANS ---
DC Summary - Certified Paralegal
-
Discharge Instructions:
Discharge Diagnosis/Procedures Unsuccessful sotalol loading and cardioversion
for persistent Afib, severe mitral regurgitation
Diet Restrict fluids to 64 oz,2 Gram Sodium
Activity As tolerated
Driving Restrictions No driving for 24 hours
Bathing Restrictions None
Blood Work -Check non-fasting blood work in 1 week
Specialty Instructions Weigh Daily
Instructions:
Stand-Alone Forms:
Changes to Home Medications: Yes
Discharge Medications:
DC Medications w/original date entered in [facility]
lutein 20 mg tablet 20 mg PO DAILY Supplement 04/15/20
aspirin 81 mg tablet,delayed release 81 mg PO DAILY Blood clot prevention/tx 05/02/20
ydlbjoizvcmz-bytiqaed-hfncnd tablet 1 tab PO DAILY Supplement 06/13/22
omega 4-trw-ebx-fish oil 1,000 mg (120 mg-180 mg) capsule (Fish Oil) 2 cap PO BID Supplement 11/25/23
rivaroxaban 20 mg tablet (Xarelto) 20 mg PO DAILY Blood Clot Prevention/Tx 11/25/23
furosemide 20 mg tablet (Lasix) 20 mg PO MOWEFR Heart Failure #12 tabs 11/28/23
lisinopril 20 mg tablet 20 mg PO BID Blood Pressure #30 tabs 11/28/23
metoprolol succinate 25 mg tablet,extended release 24 hr 12.5 mg (1/2 x 25 mg) PO DAILY Arrhythmia #30 tabs 11/28/23
Home Medication Changes
Lower dose of Toprol XL
New to Lasix
Pending Results: No
[2023-11-28 14:48] VITALS: BP 125/93
--- NOTE | 2023-11-28 15:42 | PTCARENOTE ---
Pt had ORLIN with an uneventful recovery. Pt had CT scans and carotid U/S as ordered. Telemetry and IV devices removed. Discharge instructions reviewed with pt regarding CHF packet, medications and their new doses and possible side effects, reporting
cares and concerns and follow up appt's. Very good understanding verbalized. Pt escorted out via wheelchair and discharged to home.
== END 2023-11-28 15:55 | disposition home or self-care (01) | DRG 308 ==
LOC: IVU 08:44
PROVIDERS: Internal Medicine Cardiovascular Disease; Physician Assistant Medical; ADMITTING PHYSICIAN Internal Medicine Cardiovascular Disease; FAMILY PHYSICIAN Internal Medicine
PROC: 3E0M3GC Introduction of Other Therapeutic Substance into Peritoneal Cavity, Percutaneous Approach (ICD-10-PCS; 2023-11-25)
PROC: 5A2204Z Restoration of Cardiac Rhythm, Single (ICD-10-PCS; 2023-11-27)
DX: I48.19 Other persistent atrial fibrillation (principal); I50.33 Acute on chronic diastolic (congestive) heart failure; D68.51 Activated protein C resistance; I34.0 Nonrheumatic mitral (valve) insufficiency; I11.0 Hypertensive heart disease with heart failure; I25.10 Atherosclerotic heart disease of native coronary artery without angina pectoris; Z79.01 Long term (current) use of anticoagulants; Z95.1 Presence of aortocoronary bypass graft
CPT/HCPCS: 71275; 74174; 80048; 80053; 83735; 83880; 85027; 92960; 93005; 93306; 93312; 93320; 93325; 93880; Q9967

== ENCOUNTER 2023-12-03 06:22 | Day surgery (SDC) | payer MEDICARE, SELFPAY ==
[2023-12-03] VITALS (16 sets, daily range): BP systolic 101–136; BP diastolic 61–83; BMI 29.3
[2023-12-03] MEDS: NSS 1000 IV ×2 (07:42→10:30)
--- NOTE | 2023-12-03 10:34 | ITS.CL.CATH ---
Building Maintenance Repairer - Catheterization
Cardiac Catheterization
Procedure Report:
RIGHT AND LEFT HEART CATHETERIZATION
Date of Procedure: December 03, 2023
Referring: Dr. Keshav Davila, Dr. Messi Cerrato
PROCEDURES:
1. Left heart catheterization with coronary and single-plane left ventriculography
2. Selective saphenous vein graft and LUISITO angiography
INDICATION: Severe mitral regurgitation and atrial fibrillation
ACCESS: Right common femoral artery, 6 Sami sheath
HEMODYNAMICS (mmHg) :
AO (s/d, m) : 117/70, 89
LV (s/d) : 114/11
LVEDP (m) : 16
CORONARY ANGIOGRAPHY
Dominance: Right
LEFT MAIN: Normal
LEFT ANTERIOR DESCENDING: The LAD arises normally from the left main running in the anterior interventricular groove. The proximal LAD has a long 90% stenosis and becomes subtotally occluded in its midportion. There is a patent FLORES graft to the
mid LAD with antegrade and retrograde filling of the LAD. The mid LAD beyond the LUISITO anastomosis has a 60-70% stenosis in the distal LAD reaches the apex but does not wrap completely around the apex. There is retrograde filling through a diffusely
atherosclerotic segment into the proximal LAD.
CIRCUMFLEX: The circumflex is a medium caliber nondominant vessel. OM1 is very small. OM 2 is a small caliber vessel that is subtotally occluded at its origin with sluggish antegrade flow into its midportion. The saphenous vein graft is
anastomosed to the midportion of this vessel and is found to be 100% occluded at its origin.
RIGHT CORONARY ARTERY: The right coronary artery is 100% occluded in its midportion with the distal vessel filling via lpnt-jn-nooln collaterals.
GRAFT ANGIOGRAPHY:
1. SVG-OM 2: 100% occluded at its origin
2. FLORES-LAD: Widely patent and anastomosed to the mid LAD. There is antegrade and retrograde filling of the LAD. Proximal to the LUISITO touchdown the LAD is diffusely diseased. Distal to the LAD there is a 60-70% distal stenosis
LEFT VENTRICULOGRAPHY: Left ventriculography was performed in an ATKINS projection. The digital single-plane left ventricular ejection fraction is estimated at 40% with inferobasal hypokinesis and moderate anterolateral hypokinesis. There is 3+
mitral regurgitation to a dilated left atrium. Mitral leaflet prolapse is appreciated
RADIATION SUMMARY: Fluoro Time (min): 7.7, Dose (mGy): 591.3, DAP (Gy.cm2) : 50.1
Closure Device: 6 Sami Angio-Seal RFA
CONCLUSION
1. Significant [place] vessel coronary artery disease with 100% occlusion of the SVG-small OM 2 and [place] RCA. The FLORES-LAD is patent with apical 60-70% stenosis which I would manage medically in absence of significant anginal symptoms
2. There is 3+ mitral regurgitation, dilated left atrium with mitral prolapse noted
3. Mild LV dysfunction
RECOMMENDATIONS
1. Follow-up with Dr. Cerrato as scheduled
Copy to: Dr. Keshav Davila and Dr. Messi Cerrato
== END 2023-12-03 13:15 | disposition home or self-care (01) ==
LOC: CATH 06:22
PROVIDERS: ATTENDING PHYSICIAN Internal Medicine Interventional Cardiology; FAMILY PHYSICIAN Internal Medicine
DX: I25.10 Atherosclerotic heart disease of native coronary artery without angina pectoris (principal); I34.0 Nonrheumatic mitral (valve) insufficiency; I25.82 Chronic total occlusion of coronary artery; I25.810 Atherosclerosis of coronary artery bypass graft(s) without angina pectoris; I34.1 Nonrheumatic mitral (valve) prolapse; Z79.01 Long term (current) use of anticoagulants; I48.0 Paroxysmal atrial fibrillation; Z79.82 Long term (current) use of aspirin; I10 Essential (primary) hypertension
CPT/HCPCS: 93459; C1760; C1894; Q9967

== ENCOUNTER 2023-12-17 04:53 | Inpatient (IN) | payer MEDICARE, SELFPAY ==
[2023-12-04 08:28] VITALS: BMI 29.4
[2023-12-04 08:58] LABS: % Basophils 0.1 % (0-2); % Eosinophils 1.8 % (0-6); % Immature Granulocytes 0.3 % (0-0.5); % Lymphocytes 33.7 % (20.5-51.1); % Monocytes 6.9 % (1.7-9.3); % Neutrophils 57.2 % (42.2-75.2); Absolute Eosinophils 0.1 10^3/uL (0-0.7); Absolute Lymphocytes 2.6 10^3/uL (1.2-3.4); Absolute Monocytes 0.5 10^3/uL (0.1-0.6); Absolute Neutrophils 4.3 10^3/uL (1.4-6.5); Hematocrit 44.2 % (39.0-52.0); Hemoglobin 15.2 g/dL (13.0-18.0); Mean Corp Hgb Conc. 34.4 g/dL (33.0-37.0); Mean Corpuscular Hgb 31.9 pg (27.0-31.0); Mean Corpuscular Volume 92.9 fL (80.0-94.0); Mean Platelet Volume 9.2 fL (7.4-10.4); Nucleated Red Blood Cells % 0 % (-); Platelet Count 232 10^3/uL (130-400); Red Blood Cell Count 4.76 10^6/uL (4.70-6.10); Red Cell Dist. Width 13.4 % (11.5-14.5); White Blood Cell Count 7.6 10^3/uL (4.8-10.8)
[2023-12-04 08:58] LABS: Urine Albumin Negative (Neg - Trace); Urine Bilirubin Negative (Negative); Urine Character Clear (Clear); Urine Color Yellow; Urine Glucose Negative (Negative); Urine Ketone Negative (Negative); Urine Leukocyte Negative (Negative); Urine Nitrite Negative (Negative); Urine Occult Blood Negative (Negative); Urine Specific Gravity 1.015 (<1.030); Urine Urobilinogen Negative (Neg - 1+)
[2023-12-04 09:05] LABS: INR 1.69
[2023-12-04 09:14] LABS: ALT (SGPT) 22 U/L (0-50); AST (SGOT) 30 U/L (17-59); Albumin 4.4 g/dl (3.5-5.0); Alkaline Phosphatase 65 U/L (38-126); Blood Urea Nitrogen 26 mg/dl (9-20); Calcium 9.6 mg/dl (8.4-10.2); Carbon Dioxide 22 mmol/L (22-30); Chloride 104 mmol/L (98-107); Direct Bilirubin 0.4 mg/dl (0.0-0.4); Estimated Creatinine Clearance 71 ml/min; Glucose 107 mg/dl (70-99); Potassium 4.8 mmol/L (3.5-5.1); Sodium 136 mmol/L (135-145); Total Bilirubin 1.1 mg/dl (0.2-1.3); Total Protein 7.2 g/dl (6.3-8.2); eGFR > 60.00
--- NOTE | 2023-12-04 10:11 | CM ---
Addendum entered by Cristy Cain RN 12/04/23 10:28:
Patient is giving permission to give medical updates to his friend Darling Watson,
Original Note:
Chart reviewed. Met with the patient in PAT. Reviewed preoperative and postoperative instructions, along with restrictions. Gave patient 2 soaps, along with showering instructions. Patient is agreeable to a home visit by CT Transitional RN.
Patient had a CABG [address] his [address] Transitional RN and would love to have her again. Patient is independent of ADLS, lives with his friend in a [address], [address], [address]. Plan is for the patient to return home with CT Transitional RN.
[2023-12-04 10:41] LABS: Glycohemoglobin (HgbA1c) 5.8 % (4.0-5.6)
--- NOTE | 2023-12-16 21:52 | W.PN.CT ---
Assessment / Plan
-
Assessment:
-S/P Redo sternotomy with extensive adhesiolysis, modifier 22, with central aortic and bicaval cannulation/Complex mitral valve repair [40 mm band annuloplasty, 5 pairs of CV 4 [place] placed to going to the anterior leaflet, cleft closure between
P1/P2 and P2/P3, free edge remodeling of the posterior leaflet]/Tricuspid valve repair [34 mm band annuloplasty]/ ASD closure/CABG x 1 [aorto to reverse saphenous vein graft to distal RCA]/ R EVH /Left atrial maze using cryoablation, by Dr. Cerrato,
12/17/23, pod#1
-Severe MR
-Moderate TR
-CAD
-Hx CABG x 2 (FLORES-LAD, SVG-OM1), 05/05/2020
-Persistent A-fib S/P PVI x 3 (11/21/22, 06/25/22, 11/30/11); S/p Cardioversion x 4 (11/27/23, 05/11/20, 05/09/20, 10/31/18)
-Iatrogenic ASD
-Acute on chronic Diastolic CHF
-LVEF 60-65% per echo 11/28/23; EF 45-50% per intraop ORLIN
-Hx of sternal dehiscence
-hx DVT
-Questionable Factor V Leiden
-HTN
-Hyperlipidemia (Statin intolerance)
-Prediabetes (A1C 5.8)
-Class 1 obesity (BMI 30)
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
-Chronic lower back pain
-Chronic postnasal drip
-Childhood Asthma
-LE Edema
-BPH
-Gout
-Psoriasis
-Diverticulosis with hx diverticulitis, 2019
-Colon polyps S/P polypectomy
-S/P inguinal hernia repair
-S/P blepharoplasty
-S/P bilateral cataracts
-S/P R foot surgery
-S/P Tonsillectomy
-Acute postop blood loss/Anemia (stable without PRBC transfusion)
-Acute intraop/postop thrombocytopenia (transfused 1 {5pk} plts)
-Acute postop atelectasis/pleural effusion
-Acute postop tiny right apical ptx (stable)
-Acute postop hypovolemia with subsequent hypervolemia
-Acute intraop/postop mild RV dysfunction (started on low dose dobutamine gtt)
-Acute postop hematuria (stable without clots, no CBI per Urology)
Plan:
-No major issues overnight. Hemodynamically and neurologically intact
-Successfully extubated on 12/17/23 @ 2019
-Pt currently in NSR @ 66 bpm
-Weaned off dobutamine and Levophed gtt overnight, remains on insulin gtt per protocol
-MVO2 60%, U/O since OR
-Chest tube output since OR: 2meds
-Cont. current meds (ASA, Amiodarone, Toprol XL; will discuss Plavix for SVG patency - will likely avoid today given hematuria, will resume Xarelto likely on POD#4)
-Will discuss heparin gtt tomorrow (will likely avoid today since pt currently has hematuria) given a-fib/MAZE/MV repair until able to resume Xarelto
-[place] d/c'd on POD#0
-D/C'd A-line @ this AM
-Tele phase once off insulin gtt today
-Consider keeping [place] catheter another day given hematuria
-Maintain temporary PW (will likely cut since requiring heparin to Xarelto)
-Maintain cordis
-Encourage use of IS
-Wean off of O2 as tolerated
-OOB into chair/Ambulate
-Will obtain repeat echo to evaluate valves/LVEF prior to d/c home
Subjective
-
Date of Service: December 16, 2023
Objective Data
-
Lab Results
12/04/23 08:38
12/04/23 08:38
PT 20.0 Sec (11.4-14.6) H 12/04/23 08:38
INR 1.69 12/04/23 08:38
APTT 34.0 Sec (23.4-35.0) 12/04/23 08:38
[2023-12-17] VITALS (24 sets, daily range): BP systolic 76–150; BP diastolic 58–98; BMI 28.1
[2023-12-17] MEDS: PROTONIX 40 MG PO (05:38)
[2023-12-17] MEDS: BACTROBAN 2% OINTMENT 1 APPLIC NASAL ×2 (05:38→20:43)
[2023-12-17] MEDS: MAGNESIUM OXIDE 500 MG PO (05:38)
[2023-12-17] MEDS: LOPRESSOR 25 MG PO (05:38)
--- NOTE | 2023-12-17 05:56 | PTCARENOTE ---
Pt admitted to room 2265. Pt confirmed 2 showers w/ CHG soap and NPO status since midnight. Vital signs & weight obtained. Admission questions completed. Pt clipped, prepped, and wiped w/ CHG wipes. Pt orientated to room. IS 1999. Questions
encouraged and answered. Ordered medications administered - see SEP.
--- NOTE | 2023-12-17 06:12 | W.CVOR.SURPR ---
CVOR Surgeon Immed Pre Op
-
I have examined this patient prior to performance of the scheduled procedure.
The patient's condition is unchanged from the time of the dictated/written History and
Physical and the patient is able to undergo the scheduled procedure.
Redosternotomy, MV Repair/Replacement, MAZE + YARIEL E, TV Repair, +/- CABG x 1
[2023-12-17 07:22] LABS: Urine Albumin Negative (Neg - Trace); Urine Bilirubin Negative (Negative); Urine Character Clear (Clear); Urine Color Yellow; Urine Glucose Negative (Negative); Urine Ketone Negative (Negative); Urine Leukocyte Negative (Negative); Urine Nitrite Negative (Negative); Urine Occult Blood 2+ (Negative); Urine Specific Gravity 1.015 (<1.030); Urine Urobilinogen Negative (Neg - 1+)
[2023-12-17 07:33] LABS: ACT+ - POC 107 Seconds (82-134)
[2023-12-17 07:42] LABS: B.E. - POC -5.3 mmol/L; Glucose - POC 109 mg/dl (65-99); HCO3 - POC 20 mmol/L (21-29); Hematocrit - POC 39 % PCV (42-52); Hemodilution- POC No; Hemoglobin Calculated - POC 13.3; Ionized Calcium - POC 1.18 mmol/L (1.12-1.27); O2 Saturation %Calculated-POC 99.8 5 (92-96); PCO2 - POC 37 mmHg (35-45); PO2 - POC 228 mmHg (80-100); Sodium - POC 141 mmol/L (135-145); pH - POC 7.34 (7.35-7.45)
[2023-12-17 07:50] LABS: Urine Squamous Cell 0-2 /LPF (Few)
[2023-12-17 07:51] LABS: Urine Bacteria Few (Negative); Urine White Cell 0-2 /HPF (0-5)
--- NOTE | 2023-12-17 09:11 | CM ---
pt i OR today, cm to follow.
[2023-12-17 09:32] LABS: ACT+ - POC 839 Seconds (82-134)
[2023-12-17 10:10] LABS: B.E. - POC 0.2 mmol/L; Glucose - POC 128 mg/dl (65-99); HCO3 - POC 25 mmol/L (21-29); Hematocrit - POC 34 % PCV (42-52); Hemodilution- POC Yes; Hemoglobin Calculated - POC 11.5; Ionized Calcium - POC 1.12 mmol/L (1.12-1.27); PCO2 - POC 41 mmHg (35-45); PO2 - POC 459 mmHg (80-100); Potassium - POC 4.6 mmol/L (3.6-5.0); Sodium - POC 138 mmol/L (135-145); pH - POC 7.39 (7.35-7.45)
[2023-12-17 10:14] LABS: ACT+ - POC 938 Seconds (82-134)
[2023-12-17 10:41] LABS: B.E. - POC -0.9 mmol/L; Glucose - POC 144 mg/dl (65-99); HCO3 - POC 22 mmol/L (21-29); Hematocrit - POC 35 % PCV (42-52); Hemodilution- POC Yes; Hemoglobin Calculated - POC 11.8; Ionized Calcium - POC 1.05 mmol/L (1.12-1.27); PCO2 - POC 31 mmHg (35-45); PO2 - POC 392 mmHg (80-100); Sodium - POC 137 mmol/L (135-145); pH - POC 7.46 (7.35-7.45)
[2023-12-17 10:51] LABS: ACT+ - POC 839 Seconds (82-134)
[2023-12-17 11:18] LABS: B.E. - POC -1.3 mmol/L; Glucose - POC 145 mg/dl (65-99); HCO3 - POC 22 mmol/L (21-29); Hematocrit - POC 35 % PCV (42-52); Hemodilution- POC Yes; Ionized Calcium - POC 1.02 mmol/L (1.12-1.27); PCO2 - POC 31 mmHg (35-45); PO2 - POC 349 mmHg (80-100); Potassium - POC 5.5 mmol/L (3.6-5.0); Sodium - POC 138 mmol/L (135-145); pH - POC 7.45 (7.35-7.45)
[2023-12-17 11:55] LABS: B.E. - POC -2.6 mmol/L; Glucose - POC 140 mg/dl (65-99); HCO3 - POC 21 mmol/L (21-29); Hematocrit - POC 33 % PCV (42-52); Hemodilution- POC Yes; Hemoglobin Calculated - POC 11.1; Ionized Calcium - POC 0.99 mmol/L (1.12-1.27); O2 Saturation %Calculated-POC 99.9 5 (92-96); PCO2 - POC 32 mmHg (35-45); PO2 - POC 301 mmHg (80-100); Potassium - POC 5.6 mmol/L (3.6-5.0); Sodium - POC 139 mmol/L (135-145); pH - POC 7.43 (7.35-7.45)
[2023-12-17 11:59] LABS: ACT+ - POC 900 Seconds (82-134)
[2023-12-17 12:32] LABS: B.E. - POC -2.8 mmol/L; Glucose - POC 152 mg/dl (65-99); HCO3 - POC 21 mmol/L (21-29); Hematocrit - POC 31 % PCV (42-52); Hemodilution- POC Yes; Hemoglobin Calculated - POC 10.6; Ionized Calcium - POC 1.02 mmol/L (1.12-1.27); O2 Saturation %Calculated-POC 97.8 5 (92-96); PCO2 - POC 34 mmHg (35-45); PO2 - POC 99 mmHg (80-100); Potassium - POC 5.6 mmol/L (3.6-5.0); Sodium - POC 140 mmol/L (135-145); pH - POC 7.41 (7.35-7.45)
[2023-12-17 12:37] LABS: ACT+ - POC 590 Seconds (82-134)
[2023-12-17 12:37] LABS: B.E. - POC -2.8 mmol/L; Glucose - POC 148 mg/dl (65-99); HCO3 - POC 21 mmol/L (21-29); Hematocrit - POC 32 % PCV (42-52); Hemodilution- POC Yes; Hemoglobin Calculated - POC 10.9; Ionized Calcium - POC 1.02 mmol/L (1.12-1.27); O2 Saturation %Calculated-POC 99.9 5 (92-96); PCO2 - POC 34 mmHg (35-45); PO2 - POC 264 mmHg (80-100); Potassium - POC 5.6 mmol/L (3.6-5.0); Sodium - POC 141 mmol/L (135-145)
[2023-12-17 13:04] LABS: ACT+ - POC 104 Seconds (82-134)
[2023-12-17 13:05] LABS: B.E. - POC 0.1 mmol/L; Glucose - POC 147 mg/dl (65-99); HCO3 - POC 25 mmol/L (21-29); Hematocrit - POC 31 % PCV (42-52); Hemodilution- POC Yes; Hemoglobin Calculated - POC 10.5; Ionized Calcium - POC 1.09 mmol/L (1.12-1.27); O2 Saturation %Calculated-POC 99.4 5 (92-96); PCO2 - POC 41 mmHg (35-45); PO2 - POC 162 mmHg (80-100); Potassium - POC 4.6 mmol/L (3.6-5.0); Sodium - POC 143 mmol/L (135-145); pH - POC 7.39 (7.35-7.45)
--- NOTE | 2023-12-17 13:55 | W.PN.CT.SURG ---
CT Surgery Operative Note
-
CARDIAC SURGERY OPERATIVE REPORT
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
Postoperative Diagnosis: Same
Procedure(s) Performed:
1. Ultrasound-guided access to bilateral femoral vessels
2. Redo sternotomy with extensive adhesiolysis, modifier 22, with central aortic and bicaval cannulation
3. Complex mitral valve repair [40 mm band annuloplasty, 5 pairs of CV 4 Van Meter-Tyler placed to going to the anterior leaflet, cleft closure between P1/P2 and P2/P3, free edge remodeling of the posterior leaflet]
4. Tricuspid valve repair [34 mm band annuloplasty]
5. Left atrial maze using cryoablation
6. CABG x 1 [aorto to reverse saphenous vein graft to distal RCA]
7. Endoscopic saphenous vein harvesting from the right lower extremity
8. Placement of temporary atrial and ventricular pacing wires
9. ASD closure
Date of Surgery: 12/17/2023
Comorbidities:
1. Paroxysmal atrial fibrillation, status post ablation and antiarrhythmic medication, on longstanding anticoagulation
2. 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
3. Functional tricuspid valve insufficiency secondary to longstanding atrial fibrillation and mitral valve insufficiency
4. Hyperlipidemia
5. Hypertension
6. Asthma
7. Previous cardiac surgery, multivessel coronary artery disease status post CABG x 2
8. Acute on chronic congestive heart failure with EF of approximately 45% on preoperative ORLIN compared to previous 60% outpatient
9. Sternal dehiscence
Attending Surgeon: Messi Cerrato MD, MS
Assistants: Sary Hayden PA-C (present and necessary to rn first assistant, retraction, suction, exposure, suture management, and wound closure under my direction), Messi Robbins PA-C (Endo vein harvest), Elizabeth Montano PA-C (Second assist)
Anesthesiology: Roscoe Jacques MD and Marcelina Infante CRNA
Scrub and Circulating RNs: Maki Almeida RN, Kamaljit Schwarz, GEORGES
Racing Mechanic: Lisa Harrison CCP
Anesthesia: GETA
EBL: per perfusion records
Products: 1 plt
CPB Time: 196 minutes
Aortic Cross Clamp Time: 128 minutes
Indication(s) for Procedures: This is a 78-year-old male with paroxysmal atrial fibrillation. He had previous coronary artery bypass grafting in 2019 with FLORES to LAD and vein graft to OM. He has poorly controlled symptomatic atrial fibrillation.
His mitral valve degeneration had increased and progressed. His MR is now severe with a dilated annulus and bileaflet prolapse consistent with Anders appearance. The tricuspid valve is also dilated at this point and he had moderately severe
insufficiency. Given his symptomatic atrial fibrillation, severe mitral valve insufficiency, and symptoms, he met class I indication for surgical intervention. He understood that given the redo nature of his surgery and patent FLORES graft, he was
considered to be high risk.
Aortic Valve Description: Trace central insufficiency with some sclerosis.
Mitral Valve Description: Thickened leaflets, severely dilated annulus to about 5 cm, prolapse of both anterior and posterior leaflets with large P2 scallop and P3 scallop large cleft between P1 and P2 and P2 and P3, this fit type II Kirk
Classification for mitral valve disease.
Tricuspid Valve Description: Severely dilated annulus to 4.7 cm, leaflets were relatively normal.
Findings: His left ventricular ejection fraction preoperatively was mildly depressed at 45% without any significant regional wall motion abnormalities. He was global hypokinesis his mitral valve had severe insufficiency with multiple jets and a
dilated annulus of bileaflet prolapse. The tricuspid valve was severely dilated with moderately severe insufficiency that was also central in nature. Please note that this is a modifier 22 as he is dense adhesions from his previous surgery that
took place only 4 years ago. This required significant adhesiolysis adding approximate 45 minutes to the surgery. And that she had a patent FLORES graft to the LAD that was carefully dissected out. Following surgery his EF did improve to
approximately 50 to 55% with no new regional wall motion abnormalities. The mitral valve was fairly complex and was repaired with a total of 13 nonpledgeted 2 Ethibond sutures securing a 40 mm annuloplasty band from trigone to trigone. A total of
5 CV 4 Van Meter-Tyler sutures were placed the leaflets with 3 going to the posterior leaflet at P2 and P3 and to going to the anterior leaflet at the margin between A1 A2 and A2 A3. The class between P1 and P2 and P2 and P3 were both closed with 5-0
Prolene. The free edge was remodeled along the posterior leaflet. Dynamic inflation of the left ventricle demonstrated a good posterior coaptation margin good coaptation height. After coming off cardiopulmonary bypass there was no significant
residual mitral valve insufficiency, trace at best, with a mean gradient of 1 across the valve. The tricuspid valve was repaired with a total of 11 nonpledgeted 2 Ethibond sutures securing a 34 mm band annuloplasty in place with core knots. There
is no residual tricuspid valve insufficiency. A full left atrial maze was performed with the ablation lines listed below. Given the patent FLORES graft and the dense adhesions, I was unable to safely dissect out the left atrial appendage.
Additionally on echocardiogram, the circumflex coronary artery was coursing very close towards the base and so I felt that sewing and strep from the inside was potentially dangerous. A single-vessel bypass graft was performed to the distal RCA had
good flow with test dosing of antegrade with approximately 60 cc a minute at a pressure of 60 mmHg. The proximal graft was performed while the heart was beating, clamped off, using a heart string device. At the conclusion of the case he had mild
RV dysfunction, relatively normal LV function, and was in sinus rhythm in the 60s. Given the new mild RV dysfunction, he was placed on low-dose dobutamine to help with the rate. He otherwise did not require in any pacing.
Ablation Lines:
1. Box lesion to posterior LA wall
2. YARIEL lesion
3. Coronary sinus lesion
4. Posterior mitral annular line toward P2/P3
Specimen(s): None.
Prosthesis:
1. 40mm WEBER PhysioFlex, SN [id number]
2. 34mm MEDTRONIC TriAd Band, SN [id number]
3. 5 x CV4 Goretex Neochords
Description of Procedure: The patient was taken to the operating room. Their identity and procedure to be performed were verified and they were positioned supine on the operating table. Induction via general anesthesia with endotracheal intubation
was performed and central venous access and arterial monitoring were inserted. A preoperative transesophageal echocardiogram was performed to assess cardiac function and valvular function. The patient was then prepped and draped from chin to feet in
a sterile fashion. A preoperative time-out was performed with all members of the team present. Ultrasound was used to access bilateral femoral vessels, common femoral artery on the left and common femoral vein on the right. A midline chest
incision was performed along with median sternotomy using electrocautery. His previous tenotomy had not healed properly had total sternal dehiscence with only cancellous scar tissue between the bilateral sternal. I entered with electrocautery and
sharp dissection. Simultaneous endoscopic vein harvesting was performed to the right lower extremity. A total of 5000 heparin was given. Next using a rakes the left hemisternum was elevated and the heart was from the posterior table.
The same was done with the right hemisternum. A sternal retractor was then placed and I began my dissection toward the base of the heart. Identified the RV along the pericardium and the diaphragm. Then traced my way towards the left ventricular
apex and then back towards the right atrium. Next the aorta was identified and a cannulation site was dissected free. I then circumferentially freed off the aorta and identified the SVC. Additional blunt and sharp dissection was performed around
the right atrium against the right pericardial reflection. I then turned my attention towards the left ventricle and dissected free the anterior chest wall. At this point is no longer safe to perform a dissection and so full heparinization was
given (a total of 55,000 units). The aortic cannulation site was chosen where it was soft, pliable, and free of calcium just proximal to the previous cannulation site. Cannulation was performed with an arterial cannula in the ascending aorta, angled
metal tip cannular in the superior vena cava and straight bendable cannula in the inferior vena cava. The arterial cannula line had an appropriate bounce and correlating pressures. Next, a root vent/antegrade cannula was inserted into the ascending
aorta. The ACT was confirmed to be over 400 and retrograde autologous priming was performed before commencing cardiopulmonary bypass. A retrograde coronary sinus catheter was inserted via the right atrium. The pulmonary artery was away
from the aorta to facilitate a clamp site. Additional dissection was performed towards the IVC and developing the oblique sinus. Additional dissection along the left ventricle at the left pericardial reflection was performed. The FLORES was heavily
scarred in place, so I did not fully dissect it out. The SVC was encircled with a vessel loop as was the IVC. The aortic cross-clamp was placed after decreasing the flow on the bypass and mean arterial pressure. A total of 600cc initial dose of
antegrade Del-Nido cardioplegia solution was given. The coronary sinus was quite large, so the retrograde pressures were low, I isolated the SVC/IVC and opened the right atrium and placed a pursue string around the coronary sinus and placed direct
osital retograde. A high K+ cardioplegia solution was intermittently given due to the patent FLORES graft. There was rapid electro-mechanical arrest of the heart at 500 cc of cardioplegia. The left ventricle was observed for distention on
echocardiogram and manual palpation. Cold slush was placed into a lap on the RV and we systemically cooled to 28 degrees centigrade and planned to have some cold fibrillatory arrest during the case.
The distal RCA was identified and then dissected with a Warnock blade. A small coronary arteriotomy was created enlarged with Godinez scissors. An end-to-side anastomosis was created with the vein graft after beveling it accordingly. This was done
with 7-0 Prolene in a running fashion. Test dosing of antegrade down this graft demonstrated excellent flow and pressures. Since I already entered the right atrium, LV with identified iatrogenic ASD. After the heart was fully arrested, I opened
the ASD longitudinally along the patent foramen ovale. The mitral valve was identified and inspected. Using cryo, I performed the above with ablation lines. The left atrial appendage was free of any thrombus or debris however given the proximity
of the circumflex, I felt it was unsafe to proceed with intra-atrial ligation. A total of 13 nonpledgeted 2 Ethibond sutures were placed from trigone to trigone and secured a 40 mm annuloplasty band in place. Additional cords were placed to both
the anterior and posterior leaflets. Dynamic inflation of the ventricle with saline demonstrated good coaptation and pressurization. A marker was used to identify the coaptation margin which was posterior and approximately 1 cm. Once satisfied
with the mitral valve repair, I closed the transseptal incision with 4-0 Prolene in a running fashion. Stay sutures were placed along the right atrium in order to expose the tricuspid valve. A total of 11 nonpledgeted 2 Ethibond sutures were
placed from the anterior septal commissure towards the mid septal portion of the leaflet. This secured a 34 mm band annuloplasty in place. [place] was then replaced across the into the RV. At this point under SVC and IVC isolation, the clamp was
removed with the head down and the vent turned on out to the air. The heart was allowed to reperfuse. A single 50 J defibrillation was performed with paddles and the heart regained initially junctional rhythm and then progressed back into a sinus
rhythm. While the heart was beating, the right atrium was closed in 2 layers with 4-0 Prolene in a running fashion. The vessels loops isolating the SVC and IVC were then cut. AlignAlytics device was used to perform a small aortotomy in the
proximal was done with the heart beating and clamped off. This was done with 6-0 Prolene in end-to-side fashion.
De-airing maneuvers were performed and temporary atrial and ventricular pacing wires were placed at the SVC/RA junction and base of the right ventricle, respectively. Transesophageal echocardiography revealed no evidence of systolic anterior motion
and ventricular function was normal. The tricuspid valve had no residual tricuspid insufficiency. Once de-airing was satisfactory the root vent was removed. After verifying acceptable parameters, we initiated weaning from cardiopulmonary bypass.
Once we were off cardiopulmonary bypass, the venous cannulas was clamped and removed sequentially. A test dose of protamine was administered and the patient was monitored for any adverse reaction before resuming protamine. Once half of the protamine
dose was delivered, pump suckers were turned off and the systolic blood pressure was lowered for aortic decannulation. The aortic cannula was removed and purse strings were tied down. All cannulation sites were oversewn with a 4-0 prolene. The left
atrial suture line was inspected and hemostasis was confirmed. Mediastinal hemostasis was obtained. Two #24 Leoncio drains were placed within the pericardium. Hemostatic agents were gently packed around suture lines. The sternum was approximated with
4 #7 single and 3 #8 double stainless steel wires. Fascia was approximated with #1 vicryl suture. The subcutaneous, dermis and epidermis were closed in layers in a running fashion. The skin wound was cleansed and dressed.
All instrument, sponge, and needle counts were confirmed to be correct x 2 at the end of the operation. The patient was transferred to the cardiac intensive care unit in critical but stable condition.
I, Dr. Messi Cerrato, was present, scrubbed for, and performed all critical elements of this procedure.
Messi Cerrato MD, MS
Cardiothoracic Surgeon
[facility]
This dictation was created using the [employer] dictation system. Please excuse any grammatical, typographical, or 'sound alike' errors
[2023-12-17 14:27] LABS: Glucose - Point of Care 164 mg/dl (70-99)
[2023-12-17 14:32] LABS: HCO3 22.2 mmol/L (21-28); Ionized Calcium 1.12 mMOL/L (1.15-1.33); O2 Saturation % 99.9 % (94-98); PCO2 35 mmHg (35-48); PO2 128 mmHg (83-108); Potassium 4.3 mMOL/L (3.5-5.1); Sodium 137 mMOL/L (136-145); pH 7.41 (7.35-7.45)
[2023-12-17 14:33] LABS: Hematocrit 32.2 % (39.0-52.0); Hemoglobin 11.4 g/dL (13.0-18.0); Platelet Count 125 10^3/uL (130-400)
[2023-12-17 14:34] LABS: O2 Therapy VENT
[2023-12-17 14:47] LABS: INR 1.68; PT 19.6 Sec (11.4-14.6)
[2023-12-17 14:48] LABS: APTT 31.5 Sec (23.4-35.0)
--- NOTE | 2023-12-17 14:54 | PTCARENOTE ---
Received pt at 1415 from [facility]; pt intubated and sedated; NSR 1st Degree AVB LBBB on monitor and VSS; Epicardial A& V wires in place and box turned off; RIJ Cordis, [place], Left A-line and PIVx1 all lines leveled and zeroed; Dobutamine, Insulin and
Precedex infusing see flow sheet for details; Lungs diminished; ET size 8 and 23@ lip; SIMV 60%/5/550/16; CT x2 to -20 wall suction no air leak and no crepitus noted; hypoactive bowel sounds; Storm Catheter draining punch colored urine surgical team
aware; palpable pulses throughout; no edema noted; all surgical sites C/D/i: see nursing documentation for further details.
[2023-12-17 14:59] LABS: Blood Urea Nitrogen 25 mg/dl (9-20); Estimated Creatinine Clearance 97 ml/min; Glucose 142 mg/dl (70-99); Magnesium 2.8 mg/dl (1.6-2.3)
--- NOTE | 2023-12-17 15:05 | CON.INTV ---
Consultation
Consultation Request
Date/Time Consultation Requested: 12/17/2023 - 1329
Date/Time Consultation Performed: 12/17/2023 - 1400
Requesting Provider: Ld Echevarria
Performing Provider: Dr. Valenzuela
Reason for Consultation: s/p CABG + MV/TV repair
Medical History
-
Chief Complaint: Elective MV & TV repair + CABG x 1
History of Present Illness:
78-year-old male non-smoker with a past medical history of paroxysmal A-fib on Xarelto, hyperlipidemia, history of DVT, mitral regurgitation and CAD who presents with elective mitral valve repair, tricuspid valve repair and CABG X1. Patient known
to cardiothoracic surgery, with last office visit with Dr. Cerrato on 12/02/2023. He has known CAD with 90% proximal LAD stenosis via cath in 2019, with a CERTIFIED HAND THERAPIST of OM 2 and 100% occlusion of RCA. There are collaterals. He continues to have poorly
controlled symptomatic A-fib and underwent multiple ablation procedures. He has known mitral valve insufficiency which is severe with tricuspid valve insufficiency that appears moderate�severe with a dilated annulus. He continued to have SOB with
activity although his baseline functional status is good. He discussed operative intervention and agreed to procedure. Today, he underwent redo sternotomy with extensive adhesiolysis, with a complex mitral valve repair, tricuspid valve repair, LA
maze using cryoablation, CABG X1, as well as ASD closure. There were no complications and the patient was transferred to the CVICU postoperatively, and critical care service now consulted for additional management/recommendations.
When I saw the patient he was intubated on SIMV at 16/550/5/40%, breathing at 16 breaths/min with a peak pressure of 19 and a VTe of 516 mL. His heart rate was 59, BP 122/68, PAP 21/11 and CVP 11. He was saturating 95%. He has mediastinal chest
tubes X2. He is on dobutamine at 1mcg/kg/min, and insulin drip at 3 units/h.
PMHx: Mixed hyperlipidemia, history of DVT, paroxysmal A-fib on Xarelto, hypertension, mitral regurgitation, childhood asthma, enlarged prostate, gout, CAD, diverticulosis
PSHx: Hernia repair, ablation, eye surgery, CABG X2 (04/2020), history of PVI, skin cancer removal
Past Medical History
Past Medical History: Other (Above as per HPI)
Past Surgical History: Other (Above as per HPI)
Social History
Tobacco: Non-smoker
Alcohol: None
Drug: None
Personal:
Living: With Family
Family History
Family History: CAD (Father), Cancer (Father) and Other (Mother: Thyroid disorder)
Allergies / Home Medications
Allergies
Allergy/AdvReac Type Severity Reaction Status Date / Time
cat dander Allergy eye itch Verified 12/03/23 07:10
Cephalosporins Allergy Hives Verified 12/03/23 07:10
penicillin V Allergy Hives Verified 12/03/23 07:10
Penicillins Allergy Hives Verified 12/03/23 07:10
pollen extracts Allergy hayfever Verified 12/03/23 07:10
simvastatin Allergy Back pain, Verified 12/03/23 07:10
Myalgias
Tjdczhh-QWG-KqW Reductase Allergy back Verified 12/03/23 07:10
Inhibitor pain,weak,myagias
Sulfa (Sulfonamide Allergy 'destroyed Verified 12/03/23 07:10
Antibiotics) my
digestive
bacteria'-abd
pain
sulfasalazine Allergy 'destroyed Verified 12/03/23 07:10
my
digestive
bacteria-abd
pain
doxycycline AdvReac Severe stomach Verified 12/03/23 07:10
cramps
Home Medications
�Medication �Instructions �Recorded �Confirmed �Last Taken �Type
lutein 20 mg tablet 20 mg PO DAILY Supplement 04/15/20 12/17/23 12/06/23 08:00 History
aspirin 81 mg tablet,delayed 81 mg PO DAILY Blood clot 05/02/20 12/17/23 12/16/23 08:00 History
release prevention/tx
dpoxvdzvznhz-fvhzwbhu-qgwfxz tablet 1 tab PO DAILY Supplement 06/13/22 12/17/23 12/09/23 08:00 History
rivaroxaban 20 mg tablet (Xarelto) 20 mg PO QPM Blood Clot 11/25/23 12/17/23 12/14/23 20:00 History
Prevention/Tx
furosemide 20 mg tablet (Lasix) 20 mg PO MOWEFR Heart Failure #12 11/28/23 12/17/23 12/16/23 08:00 Rx
tabs
metoprolol succinate 25 mg 12.5 mg (1/2 x 25 mg) PO DAILY 11/28/23 12/17/23 12/16/23 08:00 Rx
tablet,extended release 24 hr Arrhythmia #30 tabs
acetaminophen 500 mg tablet 500 mg PO QID PRN pain 12/03/23 12/17/23 12/16/23 08:00 History
500 mg
guaifenesin 600 mg tablet, 600 mg PO Q12H PRN congestion 12/03/23 12/17/23 12/16/23 08:00 History
extended release 12 hr (Mucinex)
lisinopril 20 mg tablet 20 mg PO BID Blood Pressure 12/03/23 12/17/23 12/14/23 20:00 History
omega-3 acid ethyl esters 1 gram 2 cap PO BID Supplement 12/03/23 12/17/23 12/09/23 08:00 History
capsule (Lovaza)
tadalafil 10 mg tablet (Cialis) 10 mg PO DAILY 12/03/23 12/17/23 12/09/23 08:00 History
Review of Systems
-
Unable to Obtain full review of systems at this time due to: Patient Intubation
Vitals / Labs / Diagnostic Testing
Vital Signs
Temp Pulse Resp BP Pulse Ox
95.2 F L 63 16 127/88 98
12/17/23 15:02 12/17/23 15:00 12/17/23 15:02 12/17/23 06:49 12/17/23 15:02
Lab Data
12/17/23 14:13
Laboratory Results
12/17/23
14:13
PT 19.6 H
INR 1.68
APTT 31.5
pH 7.41
pCO2 35
pO2 128 H
HCO3 22.2
O2 Delivery Level Vent
Diagnostic Testing:
Physical Exam
-
HEENT: Normocephalic and Anicteric
Cardiovascular: S1/S2 and Peripheral Edema (negative)
Respiratory: Wheeze (Negative), Rhonchi (Negative), Non-Labored Respirations and Other (ETT in place, with mechanical breath sounds heard bilaterally)
GI: Soft, Non Distended, Non Tender and Normal Bowel Sounds
Neurology: Other (Sedated)
Skin: Warm and Dry
General: Comfortable, Chills (n) and Sweats (n)
Assessment
-
Assessment: 78-year-old male non-smoker with a past medical history of paroxysmal A-fib on Xarelto, hyperlipidemia, history of DVT, mitral regurgitation and CAD who presents with elective mitral valve repair, tricuspid valve repair and CABG X1.
Patient known to cardiothoracic surgery, with last office visit with Dr. Cerrato on 12/02/2023. He has known CAD with 90% proximal LAD stenosis via cath in 2019, with a CERTIFIED HAND THERAPIST of OM 2 and 100% occlusion of RCA. There are collaterals. He continues to
have poorly controlled symptomatic A-fib and underwent multiple ablation procedures. He has known mitral valve insufficiency which is severe with tricuspid valve insufficiency that appears moderate�severe with a dilated annulus. He continued to
have SOB with activity although his baseline functional status is good. He discussed operative intervention and agreed to procedure. Today, he underwent redo sternotomy with extensive adhesiolysis, with a complex mitral valve repair, tricuspid
valve repair, LA maze using cryoablation, CABG X1, as well as ASD closure. There were no complications and the patient was transferred to the CVICU postoperatively, and critical care service now consulted for additional management/recommendations.
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
Impression:
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
#Multivessel CAD s/p CABG X1 � POD #0
#Paroxysmal A-fib s/p left atrial maze using cryoablation - POD#0
#History of ASD due to history of multiple ablations s/p closure - POD #0
#Anemia
#Thrombocytopenia
#Hx of DVT
#Childhood asthma
Plan:
Ventilator settings reviewed
FiO2 will be weaned to maintain SpO2 >90-94%
Minute ventilation will be adjusted
Arterial blood gases will be monitored
Spontaneous breathing trial will be attempted with hopeful extubation after anesthesia/sedation wear off
prn nebulized bronchodilators
Pulmonary artery catheter parameters will be followed
Pressors/antihypertensive/inotropes/diuretics will be provided as needed
Replete electrolytes with K>4, Mg>2
MAP>65
Monitor chest tube output (mediastinal x2)
Monitor hemoglobin
Monitor platelet count and coags
Transfuse blood product if needed
CT surgery managing chest tubes
Monitor blood sugar with goal BG 140-180mg/dL
Insulin drip per protocol
Aspiration precautions
VAP prevention protocol
DVT prophylaxis
Early nutrition
Early mobilization
Critical care statement: A total of 46 minutes of critical care time was provided for this patient today. This includes management of ventilator, spontaneous breathing trial, arterial blood gases, pressors, of unstable vital signs, evaluation of the
patient at bedside, reviewing the patient's pertinent medical records including radiographs, microbiology, laboratory evaluations, and discussion with primary team and critical care nursing.
Data:
CXR 12-17-2023:
1. Pulmonary artery catheter is turned upon itself within the right atrium. Repositioning recommended.
2. Endotracheal tube in position. Chest drains in position.
3. Tiny right apical pneumothorax.
4. Left basilar opacification, probable combination of small effusion and adjacent atelectasis/consolidation.
[2023-12-17 15:06] LABS: Mixed Venous O2 Saturation 66.8 %
--- NOTE | 2023-12-17 15:10 | W.PN.UPDATE ---
Update Note
Progress Note Update
78 year old male electively admitted 12/17/23 for redo sternotomy, mitral/tricuspid repair, CABG, MAZE, ASD closure with Dr Messi Cerrato
PMH: HTN, HLD, CABG x 2 (2019), RLE DVT, Factor V Leiden, PAF s/p PVI , & , CV , gout, cervical stenosis
IV fluids: 900
U.O.:� 1400
Blood:� 1 plt
Wires:� 2A & 2 V
Inotropes:� Dobut @ 2
Pressors:� none
Sedatives:� Precedex
�
NEURO: sedated on Precedex, pupils +2mm B/L
RESP: #8OT @23cm> 500/60%/14/5. Lungs clear B/L. 2 mediastinal (20cc on arrival) chest tubes to -20cm suction. Sanguineous drainage
CV: RRR +S1, S2, no S3, no�rub, no murmur. Dermabond to median sternotomy. RIJ w/[place] locked @ 55cm. Inaccurate PA/CVP tracings despite repositioning in the OR
ABD: round, soft, no BS
EXT: no edema, +2/4 DP pulses B/L, no femoral bruit,RLE CRISTIAN wrap intact; left radial (transduced) and femoral A-line intact, right venous sheath intact
: Storm with clear yellow urine
�
A/P: POD #0 s/p redo sternotomy complex mitral valve repair #40 mm band annuloplasty, 5 pairs of CV 4 Procious-Tyler placed to going to the anterior leaflet, cleft closure between P1/P2 and P2/P3, free edge remodeling of the posterior leaflet, tricuspid
valve repair #34 mm band annuloplasty, Left atrial maze (cryoablation), CABG x 1 (SVG-distal RCA), ASD closure
ORLIN: EF�40-45%, trace MR, MV mean 1mmHg, no TR, TV mean 1mmHg
- Vanco/aztreonam for PCN allergy
- wean and extubate
- will need instruction regarding antibiotic prophylaxis for dental and invasive procedures
# CAD
- will need ASA/possible Plavix vs OAC, beta-clarita
- allergy to statins
# Factor V Leiden with hx DVT/Paroxysmal atrial fibrillation
- on Xarelto 20mg daily @ home
- future OAC TBD
�
# acute surgical blood loss anemia-expected
- initial Hb 11.4
- trend CBC
# BPH
- resume Cialis, avoid concomitant nitrates
# Post-op hematuria
- irrigate catheter
- consult urology for possible CBI need
�
�
--- NOTE | 2023-12-17 15:11 | PTCARENOTE ---
CVPAs at bedside and Right Venous and Left Arterial lines removed.
--- NOTE | 2023-12-17 15:16 | W.PN.CARD.SR ---
Sheath/IABP Sheath Removal
Sheath Removal
Right Venous Femoral:
Site appearance prior to sheath removal: Intact
Sheath removed by:: Physician material assistant
Name of associate removing sheath: Elizabeth Montano PA-C
Time of sheath removal: 15:06
Time hemostasis achieved: 15:15
Site appearance post sheath removal: Intact
Method of Hemostasis Post Sheath Removal: Manual Pressure
Dressing dry and intact?: Yes
[2023-12-17] MEDS: AZACTAM 2000 MG IV ×2 (15:22)
[2023-12-17 15:23] LABS: Glucose - Point of Care 143 mg/dl (70-99)
[2023-12-17] MEDS: STERILE WATER FOR INJECTION 10 ML IV ×2 (15:23)
[2023-12-17] MEDS: VANCOCIN 300 ML IV (15:23)
[2023-12-17] MEDS: VANCOCIN 300 MG IV (15:23)
[2023-12-17] MEDS: NEURONTIN PO ×2 (15:24)
[2023-12-17] MEDS: TYLENOL PO (15:24)
[2023-12-17] MEDS: NSS 500 IV (15:24)
[2023-12-17] MEDS: PACERONE PO (15:25)
[2023-12-17 15:50] LABS: ACT+ - POC > 1003 Seconds (82-134)
--- NOTE | 2023-12-17 16:04 | PTCARENOTE ---
CV SHIRT CREASER at bedside and [place] Karen catheter removed at this time.
[2023-12-17] MEDS: CALCIUM CHLORIDE 10% SYRINGE 50 ML IV ×2 (16:14→23:10)
[2023-12-17] MEDS: CALCIUM CHLORIDE 10% SYRINGE 50 MG IV ×2 (16:14→23:10)
--- NOTE | 2023-12-17 16:27 | W.PN.CARDCBS ---
Today's Communication / Plan
-
Plan:
-weaning pressors
-urology to evaluate hematuria
-Will follow
Impression / Plan
-
Primary Care Provider: Dr. Adler
Primary Drum Dyeing Machine Operator: Dr. Pepe Davila
IMPRESSION:
-Redo sternotomy with the following operation:
Mitral valve repair with [place]-Tyler neocords, cleft closure and annuloplasty ring (40mm annuloplasty band)
Tricuspid valve repair with annuloplasty ring 34 mm annuloplasty band
CABG x 1 with SVG-RCA
ASD closure
-Post op : Hematuria
-Coronary artery disease with prior CABG 05/05/2022
Catheterization from 12/03/2023: FLORES-LAD: widely patent, SVG-OM 100% occluded and RCA 100% occluded
-Paroxysmal atrial fibrillation : Recent admission for sotalol load then stopped after unsuccessful cardioversion
s/p PVI 11/30/11, s/p PVI 06/25/22, s/p PVI 11/21/22
-HTN
-History of Factor V Leiden with prior DVT
-Hyperlipidemia with statin intolerance
Echo 04/18/20: Ejection fraction 50%, bileaflet mitral valve prolapse with moderate MR
Echo 06/21/20: EF 55-60%, stage I diastolic dysfunction, mod to sev eccentric MR, mild TR, dilated aortic root with Sinus of Valsalva measuring 4.4 cm., sinotubular junction measures 4.2 cm.; ascending aorta measures 4.0 cm.
Echo 11/25/23: EF 60-65%, severe biatrial dilatation, mod to sev MR, mild aortic insufficiency, mod TR with PAP 55-60 mmHg
PLAN:
-Urology to evaluate hemauria
-Still intubated and sedated
-Weaning pressors as tolerated
-Will follow
HPI: Patient came to today for direct admission for sotalol loading for persistent Afib. Patient with previous PVI 11/30/11 and then recurred after CABG 04/2020 and was managed with amiodarone for a period of time and then it was stopped. He then
had a recurrent PVI 06/25/22. He recurred with Afib and had another PVI 11/21/22. Most recently he has recurred with Afib and does not always feel palpitations, but feels SOB, HANSEN and sometimes still feels palpitations. He says he is tired. He has
increased LE edema that is worse following discontinuation of HCTZ at last office visit 10/31/23. No orthopnea.
Progress Note - Drum Dyeing Machine Operator
Subjective
Date of Service: December 17, 2023
Post op and remains intubated and sedated
Objective
Labs:
12/17/23 14:13
Labs
Hgb 11.4 g/dL (13.0-18.0) L 12/17/23 14:13
Hct 32.2 % (39.0-52.0) L 12/17/23 14:13
Plt Count 125 10^3/uL (130-400) L 12/17/23 14:13
PT 19.6 Sec (11.4-14.6) H 12/17/23 14:13
INR 1.68 12/17/23 14:13
APTT 31.5 Sec (23.4-35.0) 12/17/23 14:13
Sodium 136 mmol/L (135-145) 12/04/23 08:38
Potassium 4.8 mmol/L (3.5-5.1) 12/04/23 08:38
BUN 25 mg/dl (9-20) H 12/17/23 14:13
Creatinine 0.8 mg/dL (0.7-1.3) 12/17/23 14:13
Glucose 142 mg/dl (70-99) H 12/17/23 14:13
Vital Signs and I&O:
Vital Signs
Temp Pulse Resp BP Pulse Ox
95.4 F L 60 16 127/88 96
12/17/23 16:04 12/17/23 16:00 12/17/23 16:04 12/17/23 06:49 12/17/23 16:04
Vital Signs
Temp Pulse Resp BP Pulse Ox
95.4 F L 60 16 127/88 96
12/17/23 16:04 12/17/23 16:00 12/17/23 16:04 12/17/23 06:49 12/17/23 16:04
Intake & Output
12/14/23 12/15/23 12/16/23 12/17/23
23:59 23:59 23:59 23:59
Intake Total 120.0 / 120.0
Output Total 420 / 420
Balance -300.0 / -300.0
Physical Exam
Physical Exam
GEN: Intubated and sedated post op
HEENT: NC/AT, ET Tube in place
LUNGS: Coarse breath sounds but no wheezing.
CV: Regular rate and rhythm. No murmur
ABD : Soft, Bowel sounds are present.
EXT: No CCE
NEURO: No focal neurologic deficits
[2023-12-17 16:29] LABS: Glucose - Point of Care 144 mg/dl (70-99)
[2023-12-17 17:17] LABS: Glucose - Point of Care 124 mg/dl (70-99)
[2023-12-17 17:25] LABS: Hemoglobin 11.9 g/dL (13.0-18.0); Mixed Venous O2 Saturation 57.2 %; Platelet Count 146 10^3/uL (130-400)
[2023-12-17 18:03] LABS: Glucose - Point of Care 116 mg/dl (70-99)
--- NOTE | 2023-12-17 18:05 | PTCARENOTE ---
Epicardial wires tested and set to VVI 40/5/2 and no pacing noted on monitor; VSS, NSR PACs on monitor; assessment unchanged.
--- NOTE | 2023-12-17 18:14 | CONS.URO ---
Consultation
-
Performing Provider: Vilma
Reason for Consultation: Hematuria
Medical History
History of Present Illness
78M with no significant urologic history other than 'slightly enlarged prostate'
He takes tadalafil 10mg for BPH and ED
Admitted post op following mitral valve repair, tricuspid valve repair, CABG
Post op he was noted to have hematuria in markham catheter bag and urology was consulted
Catheter had no obstruction or clots
Past Medical History
Past Medical History: Other (See H&P)
Past Surgical History: Other (See H&P)
Social History
Unable to obtain full social history at this time due to: Patient Intubation
Family History
Family History: Unable to Obtain
Allergies/Home Medications
Allergies
Allergy/AdvReac Type Severity Reaction Status Date / Time
cat dander Allergy eye itch Verified 12/03/23 07:10
Cephalosporins Allergy Hives Verified 12/03/23 07:10
penicillin V Allergy Hives Verified 12/03/23 07:10
Penicillins Allergy Hives Verified 12/03/23 07:10
pollen extracts Allergy hayfever Verified 12/03/23 07:10
simvastatin Allergy Back pain, Verified 12/03/23 07:10
Myalgias
Lztytqd-ARM-VkA Reductase Allergy back Verified 12/03/23 07:10
Inhibitor pain,weak,myagias
Sulfa (Sulfonamide Allergy 'destroyed Verified 12/03/23 07:10
Antibiotics) my
digestive
bacteria'-abd
pain
sulfasalazine Allergy 'destroyed Verified 12/03/23 07:10
my
digestive
bacteria-abd
pain
doxycycline AdvReac Severe stomach Verified 12/03/23 07:10
cramps
Home Medications
�Medication �Instructions �Recorded �Confirmed �Type
lutein 20 mg tablet 20 mg PO DAILY Supplement 04/15/20 12/17/23 History
aspirin 81 mg tablet,delayed 81 mg PO DAILY Blood clot 05/02/20 12/17/23 History
release prevention/tx
uozfvvsrlmmg-cvjmfasu-epbzai tablet 1 tab PO DAILY Supplement 06/13/22 12/17/23 History
rivaroxaban 20 mg tablet (Xarelto) 20 mg PO QPM Blood Clot 11/25/23 12/17/23 History
Prevention/Tx
furosemide 20 mg tablet (Lasix) 20 mg PO MOWEFR Heart Failure #12 11/28/23 12/17/23 Rx
tabs
metoprolol succinate 25 mg 12.5 mg (1/2 x 25 mg) PO DAILY 11/28/23 12/17/23 Rx
tablet,extended release 24 hr Arrhythmia #30 tabs
acetaminophen 500 mg tablet 500 mg PO QID PRN pain 12/03/23 12/17/23 History
guaifenesin 600 mg tablet, 600 mg PO Q12H PRN congestion 12/03/23 12/17/23 History
extended release 12 hr (Mucinex)
lisinopril 20 mg tablet 20 mg PO BID Blood Pressure 12/03/23 12/17/23 History
omega-3 acid ethyl esters 1 gram 2 cap PO BID Supplement 12/03/23 12/17/23 History
capsule (Lovaza)
tadalafil 10 mg tablet (Cialis) 10 mg PO DAILY 12/03/23 12/17/23 History
Physical Exam
Vital Signs
Vital Signs
Temp Pulse Resp BP Pulse Ox
96.2 F L 64 16 100/74 98
12/17/23 17:00 12/17/23 18:00 12/17/23 18:01 12/17/23 17:00 12/17/23 18:01
Lab / Testing Results
Laboratory Results
12/17/23 17:17
12/17/23 14:13
Physical Exam
General: Well Developed, Well Nourished and Intubated
HEENT: Normocephalic
Respiratory: Other (intubated)
GI: Soft and Non Distended
Genito-urinary: Bloody Urine and [place] Catheter
Musculoskeletal: No Cyanosis
Skin: Warm and Dry
Neuro: Sedated
Assessment / Plan
-
78M with gross hematuria following
- Initially bright red urine in catheter bag decreased to light pink over the first several hours post op. No clots or obstruction on irrigation
- Suspect catheter trauma as most likely source of bleeding. Recommend observation and likely trial of void when patient recovering functional status
- Not currently on any anticoagulation
- Will upsize catheter +/- CBI if hematuria worsens
[2023-12-17 19:04] LABS: Glucose - Point of Care 130 mg/dl (70-99)
--- NOTE | 2023-12-17 19:20 | PTCARENOTE ---
Patient alert, following commands appropriately. CPAP trial started at 1919 without incident. Will obtain ABG at 1950
--- NOTE | 2023-12-17 19:45 | PTCARENOTE ---
Assumed care of patient at 1900. Patient found in bed at time of assessment intubated. Patient is alert, follows all commands appropriately, can move all extremities. Heart sounds have a regular rate and rhythm, there is a rub noted on auscultation,
patient is on residential monitor with SR 1st deg AV block and BBB. Patient has normal palpable pulses and is noted to have trace pedal edema. Patient has AV wires that are off connected to temporary pacer. Lung sounds are audible, loud. Patient has 8.0
ETT sitting 23 on the lip. Patient has SIMV settings see worklist for more info. There are CTx2: Both meds to one atrium draining bright red. Soft nontender abdomen with hypoactive BS throughout all four quadrants. Patient has indwelling urinary
catheter with hematuria. No clots are present at this time. 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 Patient has R IJ cordis, L
radial Sherri, and R hand PIV. Patient has the following gtts: Levo@2, Insulin@2.3, Dobut@1. Vital signs as follows: T-98 RR-16 BP-129/68 saO2-100. Patient is stable at this time.
[2023-12-17 20:05] LABS: B.E. -5.7 mmol/L; HCO3 17.3 mmol/L (21-28); Ionized Calcium 1.09 mMOL/L (1.15-1.33); O2 Saturation % 99.8 % (94-98); PCO2 26 mmHg (35-48); PO2 129 mmHg (83-108); Potassium 3.7 mMOL/L (3.5-5.1); pH 7.43 (7.35-7.45)
[2023-12-17] MEDS: SODIUM BICARBONATE 50 MEQ IV (20:14)
--- NOTE | 2023-12-17 20:20 | RESPNOTE ---
PT was extubated at this time following a brief CPAP/PS wean with very minimal settings, accompanied by acceptable ABG results after 30 minutes. Volumes and vitals were acceptable on the wean and PT was placed on 6 L nasal cannula (44%). PT stated
his name, post extubation and accomplished an I/S result of 1,500 mls x 3 attempts. Will continue to monitor resp status.
[2023-12-17] MEDS: VANCOCIN 200 IV (20:23)
[2023-12-17] MEDS: SENOKOT-S PO (20:37)
--- NOTE | 2023-12-17 20:59 | PTCARENOTE ---
Patient extubated at [address] PA ordered 1 amp bicarb prior to extubation. Levo placed on hold due to elevated BP following bicarb administration. Patient able to answer all orientation questions correctly. Placed on 6L O2 via NC
saO2 at 99%. Patient is stable.
[2023-12-17 21:22] LABS: Glucose - Point of Care 104 mg/dl (70-99)
--- NOTE | 2023-12-17 21:30 | PTCARENOTE ---
When attempting to obtain MvO2 from Cordis this RN noted that blood was unable to be drawn. Difficulty flushing Cordis as well. CT PA notified. CT PA at bedside to adjust cordis. Cordis working appropriately now central line redressed. MvO2
obtained. Lytes to be repleted via IV medications.
[2023-12-17 21:32] LABS: Mixed Venous O2 Saturation 58.8 %
[2023-12-17] MEDS: KCL 50 IV (21:52)
[2023-12-17] MEDS: LOW STRENGTH ASPIRIN 81 MG PO (22:14)
[2023-12-17] MEDS: TYLENOL 1000 MG PO (22:14)
[2023-12-17] MEDS: NEURONTIN 100 MG PO (22:14)
[2023-12-17 23:14] LABS: Mixed Venous O2 Saturation 60.2 %
[2023-12-17 23:19] LABS: Glucose - Point of Care 138 mg/dl (70-99)
[2023-12-18] VITALS (31 sets, daily range): BP systolic 117–154; BP diastolic 56–88; PULSE 78; O2SAT 94–96; BMI 28.1
--- NOTE | 2023-12-18 | PTCARENOTE ---
Patient reassessed. VSS. Remains off Levo. Dobut tapered down to 0.5. No c/o pain. Weaning O2. Remains SR with first deg AV block, BBB, occasional PACs. iCa and K repleted.
[2023-12-18 01:18] LABS: Glucose - Point of Care 108 mg/dl (70-99)
[2023-12-18 03:11] LABS: Glucose - Point of Care 87 mg/dl (70-99)
[2023-12-18 03:24] LABS: Mixed Venous O2 Saturation 65.4 %
[2023-12-18 03:38] LABS: Hematocrit 30.4 % (39.0-52.0); Hemoglobin 10.8 g/dL (13.0-18.0); Mean Corp Hgb Conc. 35.5 g/dL (33.0-37.0); Mean Corpuscular Hgb 32.2 pg (27.0-31.0); Mean Corpuscular Volume 90.7 fL (80.0-94.0); Mean Platelet Volume 9.7 fL (7.4-10.4); Platelet Count 148 10^3/uL (130-400); Red Blood Cell Count 3.35 10^6/uL (4.70-6.10); Red Cell Dist. Width 13.2 % (11.5-14.5); White Blood Cell Count 8.9 10^3/uL (4.8-10.8)
[2023-12-18 03:44] LABS: INR 1.39; PT 16.9 Sec (11.4-14.6)
--- NOTE | 2023-12-18 04:01 | W.PN.CT ---
Today's Communication / Plan
-
Plan:
-No major issues overnight. Hemodynamically and neurologically intact
-Successfully extubated on 12/17/23 @ 2019
-EKG this AM shows NSR @ 67 bpm with 1st deg HB and Incomplete LBBB
-Weaned off Levophed gtt overnight, dobutamine gtt @ 0.5 mcg/kg/min, remains on insulin gtt per protocol
-Attempted to wean off dobutamine gtt @ midnight but noted to be bradycardic @ 50 bpm with pauses. Placed Amiodarone and BB on hold for now
-Last MVO2 65.4%, U/O since OR 940 mL, hematuria is clearing
-Chest tube output since OR: 2meds 180/350
-CXR yesterday showed tiny right apical ptx, cannot appreciate a ptx this AM, no air leak
-Cont. current meds (ASA, Amiodarone, Toprol XL; will discuss Plavix for SVG patency - will likely avoid today given hematuria, will resume Xarelto likely on POD#4)
-Will discuss timing of heparin gtt (will likely avoid today since pt currently has hematuria) given a-fib/MAZE/MV repair until able to resume Xarelto
-[place] d/c'd on POD#0
-D/C'd A-line @ 0500 this AM
-Tele phase once off insulin gtt today
-Consider keeping markham catheter another day given BPH with hematuria
-Maintain temporary PW (will likely cut if requiring heparin to Xarelto)
-Maintain cordis
-Encourage use of IS
-Wean off of O2 as tolerated
-OOB into chair/Ambulate
-Will obtain repeat echo to re-evaluate MV and TV repair, LV and RV function prior to d/c home
Assessment / Plan
-
Assessment:
-S/P Redo sternotomy with extensive adhesiolysis, modifier 22, with central aortic and bicaval cannulation/Complex mitral valve repair [40 mm band annuloplasty, 5 pairs of CV 4 [place]-Tyler placed to going to the anterior leaflet, cleft closure between
P1/P2 and P2/P3, free edge remodeling of the posterior leaflet]/Tricuspid valve repair [34 mm band annuloplasty]/ ASD closure/CABG x 1 [aorto to reverse saphenous vein graft to distal RCA]/ R EVH /Left atrial maze using cryoablation, by Dr. Cerrato,
12/17/23, pod#1
-Severe MR
-Moderate TR
-CAD
-Hx CABG x 2 (FLORES-LAD, SVG-OM1), 05/05/2020
-Persistent A-fib S/P PVI x 3 (11/21/22, 06/25/22, 11/30/11); S/p Cardioversion x 4 (11/27/23, 05/11/20, 05/09/20, 10/31/18)
-Iatrogenic ASD from multiple ablations with left to right shunt
-Acute on chronic Diastolic CHF
-LVEF 60-65% per echo 11/28/23; EF 45-50% per intraop ORLIN
-Hx of sternal dehiscence
-hx DVT
-Questionable Factor V Leiden
-HTN
-Hyperlipidemia (Statin intolerance)
-Prediabetes (A1C 5.8)
-Class 1 obesity (BMI 30)
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
-Chronic lower back pain
-Chronic postnasal drip
-Childhood Asthma
-LE Edema
-BPH
-Gout
-Psoriasis
-Diverticulosis with hx diverticulitis, 2019
-Colon polyps S/P polypectomy
-S/P inguinal hernia repair
-S/P blepharoplasty
-S/P bilateral cataracts
-S/P R foot surgery
-S/P Tonsillectomy
-Acute postop blood loss/Anemia (stable without PRBC transfusion)
-Acute intraop/postop thrombocytopenia (transfused 1 {5pk} plts)
-Acute postop atelectasis/pleural effusion
-Acute postop tiny right apical ptx (stable)
-Acute postop hypovolemia with subsequent hypervolemia
-Acute intraop/postop mild RV dysfunction (started on low dose dobutamine gtt)
-Acute postop hematuria (stable without clots, no CBI per Urology)- clearing
Discussed patient care with: Cardiology, Nursing, Respiratory Therapy, Pharmacy and Care Team
Subjective
Procedure
-S/P Redo sternotomy with extensive adhesiolysis, modifier 22, with central aortic and bicaval cannulation/Complex mitral valve repair [40 mm band annuloplasty, 5 pairs of CV 4 [place]-Tyler placed to going to the anterior leaflet, cleft closure between
P1/P2 and P2/P3, free edge remodeling of the posterior leaflet]/Tricuspid valve repair [34 mm band annuloplasty]/ ASD closure/CABG x 1 [aorto to reverse saphenous vein graft to distal RCA]/ R EVH /Left atrial maze using cryoablation, by Dr. Cerrato,
12/17/23, pod#1
-
Date of Service: December 18, 2023
Pt c/o incisional pain, otherwise feels well
Objective Data
-
Lab Results
12/18/23 03:18
PT 16.9 Sec (11.4-14.6) H 12/18/23 03:18
INR 1.39 12/18/23 03:18
APTT 31.5 Sec (23.4-35.0) 12/17/23 14:13
Vital Signs
Vital Signs
Temp Pulse Resp BP Pulse Ox
99 F 65 18 136/57 98
12/18/23 03:06 12/18/23 03:45 12/18/23 03:06 12/18/23 03:06 12/18/23 03:45
CT Intake/Output/Weight
12/17/23 12/17/23 12/18/23
06:59 18:59 06:59
Intake Total 240.9 / 479.4 238.5 / 479.4
Output Total 630 / 1160 530 / 1160
Balance -389.1 / -680.6 -291.5 / -680.6
SaO2: 97 (2L)
Physical Exam
-
General: Awake, Oriented and AOx3
Cardiovascular: No Murmurs, Rub (likely friction rub from chest tubes) and No Gallop
Respiratory: Decreased Breath Sounds
Sternum: Stable
Incision: Clean, Dry, Intact and Dressing Intact
Extremities: No Edema
Data Reviewed
-
Lab Results: Results Reviewed
Medications: Active Meds Reviewed
Chest X-Ray: Report Reviewed and Image Reviewed
ECG: Report Reviewed and Image Reviewed
[2023-12-18 04:02] LABS: Blood Urea Nitrogen 27 mg/dl (9-20); Calcium 9.5 mg/dl (8.4-10.2); Carbon Dioxide 25 mmol/L (22-30); Chloride 112 mmol/L (98-107); Estimated Creatinine Clearance 78 ml/min; Glucose 84 mg/dl (70-99); Magnesium 2.3 mg/dl (1.6-2.3); Potassium 4.7 mmol/L (3.5-5.1); Sodium 140 mmol/L (135-145); eGFR > 60.00
[2023-12-18] MEDS: DILAUDID 0.5 MG IV (04:23)
[2023-12-18 06:00] LABS: Glucose - Point of Care 119 mg/dl (70-99)
[2023-12-18] MEDS: DILAUDID 0.25 MG IV (06:21)
[2023-12-18] MEDS: TYLENOL 1000 MG PO ×3 (06:52→22:07)
--- NOTE | 2023-12-18 07:30 | PTCARENOTE ---
Assumed care of patient from plant operator/shift supervisor RN. AAO x 3. Sitting up in chair. Denies complaint. SR with First degree AVB. AV wires to temporary pacemaker, box off at present. Rub noted on exam. Chest tubes x 2 noted, air leak noted
intermittently. Lungs clear but decreased. Pulse ox 98-99% on 2 L. Abdomen soft and non tender, passing flatus, denies nausea, appetite poor. Storm draining dark yan urine. Pulses palpable. No edema appreciated. Surgical sites c,d,i.
Dobutamine infusing on handoff along with insulin per glycemic.
[2023-12-18 07:56] LABS: Glucose - Point of Care 115 mg/dl (70-99)
[2023-12-18] MEDS: SENOKOT-S 1 TABLET PO ×2 (08:46→20:39)
[2023-12-18] MEDS: LOW STRENGTH ASPIRIN 81 MG PO (08:46)
[2023-12-18] MEDS: NEURONTIN 100 MG PO ×3 (08:46→22:07)
[2023-12-18] MEDS: PROTONIX 40 MG PO (08:46)
[2023-12-18] MEDS: FLEXERIL 5 MG PO ×2 (08:47→22:08)
[2023-12-18] MEDS: VANCOCIN 200 IV (08:48)
[2023-12-18] MEDS: LASIX 40 MG IV (08:48)
--- NOTE | 2023-12-18 09:20 | W.PN.CARDCBS ---
Today's Communication / Plan
-
Plan:
-Repeat echocardiogram to reassess MV and TV repairs in a few days
-ECG in sinus rhythm. HR in 70's. May consider restarting beta clarita later today or tomorrow
-Xarelto on hold at least until hematuria resolves. Dr. Cerrato thinking PO Day 4
Impression / Plan
-
Primary Care Provider: Dr. Adler
Primary Cut Tobacco Bulker: Dr. Pepe Davila
IMPRESSION:
-Redo sternotomy with the following operation:
Mitral valve repair with [place]-Tyler neocords, cleft closure and annuloplasty ring (40mm annuloplasty band)
Tricuspid valve repair with annuloplasty ring 34 mm annuloplasty band
CABG x 1 with SVG-RCA
ASD closure
LA Maze
-Post op : Hematuria
-Coronary artery disease with prior CABG 05/05/2022
Catheterization from 12/03/2023: FLORES-LAD: widely patent, SVG-OM 100% occluded and RCA 100% occluded
-Paroxysmal atrial fibrillation : Recent admission for sotalol load then stopped after unsuccessful cardioversion
s/p PVI 11/30/11, s/p PVI 06/25/22, s/p PVI 11/21/22
-HTN
-History of Factor V Leiden with prior DVT
-Hyperlipidemia with statin intolerance
Echo 04/18/20: Ejection fraction 50%, bileaflet mitral valve prolapse with moderate MR
Echo 06/21/20: EF 55-60%, stage I diastolic dysfunction, mod to sev eccentric MR, mild TR, dilated aortic root with Sinus of Valsalva measuring 4.4 cm., sinotubular junction measures 4.2 cm.; ascending aorta measures 4.0 cm.
Echo 11/25/23: EF 60-65%, severe biatrial dilatation, mod to sev MR, mild aortic insufficiency, mod TR with PAP 55-60 mmHg
PLAN:
-successfully extubated and pressors weaned over night.
-Repeat echocardiogram to reassess MV and TV repairs in a few days
-ECG in sinus rhythm. HR in 70's. May consider restarting beta clarita later today or tomorrow
-Xarelto on hold. Dr. Cerrato thinking may resume on POD#4
HPI: Patient came to today for direct admission for sotalol loading for persistent Afib. Patient with previous PVI 11/30/11 and then recurred after CABG 04/2020 and was managed with amiodarone for a period of time and then it was stopped. He then
had a recurrent PVI 06/25/22. He recurred with Afib and had another PVI 11/21/22. Most recently he has recurred with Afib and does not always feel palpitations, but feels SOB, HANSEN and sometimes still feels palpitations. He says he is tired. He has
increased LE edema that is worse following discontinuation of HCTZ at last office visit 10/31/23. No orthopnea.
Progress Note - Cut Tobacco Bulker
Subjective
Date of Service: December 18, 2023
Sitting in chair this am. Feels 'as if a truck hit me' but without focal complaint
Objective
Labs:
12/18/23 03:18
12/18/23 03:18
Labs
Hgb 10.8 g/dL (13.0-18.0) L 12/18/23 03:18
Hct 30.4 % (39.0-52.0) L 12/18/23 03:18
Plt Count 148 10^3/uL (130-400) 12/18/23 03:18
PT 16.9 Sec (11.4-14.6) H 12/18/23 03:18
INR 1.39 12/18/23 03:18
APTT 31.5 Sec (23.4-35.0) 12/17/23 14:13
Sodium 140 mmol/L (135-145) 12/18/23 03:18
Potassium 4.7 mmol/L (3.5-5.1) 12/18/23 03:18
BUN 27 mg/dl (9-20) H 12/18/23 03:18
Creatinine 1.0 mg/dL (0.7-1.3) 12/18/23 03:18
Glucose 84 mg/dl (70-99) 12/18/23 03:18
Vital Signs and I&O:
Vital Signs
Temp Pulse Resp BP Pulse Ox
98.7 F 71 18 150/79 99
12/18/23 06:00 12/18/23 06:00 12/18/23 06:00 12/18/23 06:00 12/18/23 06:00
Vital Signs
Temp Pulse Resp BP Pulse Ox
98.7 F 71 18 150/79 99
12/18/23 06:00 12/18/23 06:00 12/18/23 06:00 12/18/23 06:00 12/18/23 06:00
Intake & Output
12/15/23 12/16/23 12/17/23 12/18/23
23:59 23:59 23:59 23:59
Intake Total 381.4 / 381.4 208.4 / 208.4
Output Total 930 / 930 460 / 460
Balance -548.6 / -548.6 -251.6 / -251.6
Physical Exam
Physical Exam
GEN: Sitting in chair. Speaking in full sentences. Interactive and pleasant
HEENT: NC/AT, Sclera anicteric
LUNGS: Chest tube in place. Clear anterior breath sounds.
CV: Regular rate and rhythm. No murmur
EXT: No CCE
: Storm draining red urine.
NEURO: No focal neurologic deficits
[2023-12-18 09:49] LABS: Glucose - Point of Care 146 mg/dl (70-99)
[2023-12-18] MEDS: BACTROBAN 2% OINTMENT 1 APPLIC NASAL ×2 (10:26→20:40)
[2023-12-18] MEDS: LIDOCAINE 4% PATCH TOPICAL (10:27)
--- NOTE | 2023-12-18 11:41 | W.PN.ANS.POP ---
Anesthesia Post Operative
- Anesthesia Post Op Note
Vital Signs Stable-See Nursing Note: Yes
Airway Patent: Yes
Adequate Pain Control: Yes
Change in Mental Status: No
Current Postoperative Nausea & Vomiting: No
Anesthesia Complications: No
General Anesthetic Recall: No
Unplanned Admission: No
Post Op Hydration Adequate: Yes
--- NOTE | 2023-12-18 11:43 | CM ---
CM following for DC planning needs.
Patient is POD#[address] Surgery.
Pt. was sleeping soundly, CM did not disturb.
Anticipate DC to home w/ CT Transitional Care RN.
CM to follow.
[2023-12-18 11:53] LABS: Glucose - Point of Care 101 mg/dl (70-99)
--- NOTE | 2023-12-18 12:26 | W.PN.URO.CBU ---
Today's Communication / Plan
-
Hematuria near resolved
Okay to remove markham when determined by primary service
Assessment / Plan
-
78M with gross hematuria noted post op valve repair/CABG
Prior hx hematospermia a few years ago with negative cystoscopy workup
- Hematuria likely due to catheter placement trauma and resolving well spontaneously
- Recommend routine catheter removal whenever it would otherwise be done routinely post operatively
- Please call with any problems following catheter removal
Diagnosis
-
Date of Service: December 18, 2023
-
Patient Diagnosis:
Gross hematuria
Post Op Day:
Subjective
-
Hematuria near resolved
Tolerating markham
Objective
-
Vital Signs
Temp Pulse Resp BP Pulse Ox
97.7 F 58 16 154/88 96
12/18/23 11:52 12/18/23 11:52 12/18/23 11:52 12/18/23 09:26 12/18/23 11:52
Intake and Output
12/17/23 12/18/23 12/19/23
06:59 06:59 06:59
Intake Total 547.3 / 547.3 289.5 / 289.5
Output Total 1290 / 1290 180 / 180
Balance -742.7 / -742.7 109.5 / 109.5
Intake:
Oral fluids 260 / 260
IV fluids (Total) 477.3 / 477.3 29.5 / 29.5
Cordis 170 / 170
Dobut 47.4 / 47.4 0 / 0
Insulin 34.7 / 34.7 9.5 / 9.5
Levo 15.0 / 15.0
Precedex 40.2 / 40.2
VIP 170 / 170
IV piggybacks 50 / 50
Markham intermittent irrigation
Output:
Multi-Chest Tube to Single 350 / 350
Drain Output
Mediastinal x2 350 / 350
Urine, Markham 940 / 940
Laboratory Results
12/18/23 03:18
12/18/23 03:18
Physical Exam
-
General - well developed, well nourished, no acute distress
Chest - chest tube in place
Abdomen - soft, non-tender
- markham in place, minimal dark/old hematuria, mostly yellow
--- NOTE | 2023-12-18 12:40 | W.PN.INTV ---
Today's Communication / Plan
Recommendations
Up OOB as tolerated
Pain control
Encourage incentive spirometer use
Patient will be downgraded to telemetry status today. He is no longer on insulin infusion and off all vasopressors, on room air breathing comfortably. Stripe Matcher/Pulmonary service will now sign off. Please reconsult if there are any additional
questions/concerns, or if patient's respiratory status deteriorates.
Assessment
-
Assessment: 78-year-old male non-smoker with a past medical history of paroxysmal A-fib on Xarelto, hyperlipidemia, history of DVT, mitral regurgitation and CAD who presents with elective mitral valve repair, tricuspid valve repair and CABG X1.
Patient known to cardiothoracic surgery, with last office visit with Dr. Cerrato on 12/02/2023. He has known CAD with 90% proximal LAD stenosis via cath in 2019, with a SUPERVISOR TELEVISION CHASSIS REPAIR of OM 2 and 100% occlusion of RCA. There are collaterals. He continues to
have poorly controlled symptomatic A-fib and underwent multiple ablation procedures. He has known mitral valve insufficiency which is severe with tricuspid valve insufficiency that appears moderate�severe with a dilated annulus. He continued to
have SOB with activity although his baseline functional status is good. He discussed operative intervention and agreed to procedure. Today, he underwent redo sternotomy with extensive adhesiolysis, with a complex mitral valve repair, tricuspid
valve repair, LA maze using cryoablation, CABG X1, as well as ASD closure. There were no complications and the patient was transferred to the CVICU postoperatively, and critical care service now consulted for additional management/recommendations.
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
Impression:
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
#Multivessel CAD s/p CABG X1 � POD #1
#Paroxysmal A-fib s/p left atrial maze using cryoablation - POD#1
#History of ASD due to history of multiple ablations s/p closure - POD #1
#Anemia with traumatic Storm + hematuria (hematuria now resolved)
#Thrombocytopenia
#Hx of DVT
#Childhood asthma
Plan:
Tolerated extubation
On room air doing well, breathing comfortably
Encourage incentive spirometry q1hr while awake
Increase activity
Aspiration precautions
Pulmonary artery catheter and arterial line removed
Pressors have been weaned
Continue to monitor chest tube output (mediastinal X2)
Follow hemoglobin
Continue to follow platelet count and coags
Transfuse blood product as needed to keep Hb>7g/dL, plt>50k
CT surgery managing chest tubes as well
Follow blood sugar with goal BG 140�180
Insulin supplementation continues as needed
Early nutrition
Early mobilization
DVT prophylaxis
Patient will be transferred to telemetry phase-call pulmonary if respiratory issues arise
Reviewed the patient's pertinent medical records including radiographs, microbiology, laboratory evaluations, and discussion with primary team, and critical care nursing.
Total time spent today was 55 minutes for this encounter. Time includes reviewing laboratory test/imaging results, reviewing pertinent medical records, obtaining and reviewing medical history, performing an appropriate exam, ordering medications,
tests and procedures. Time also includes documentation of this encounter, coordinating patient care and communicating with other healthcare professionals. Total time does not include separately billed tests performed on this date of service.
Data:
CXR 12-18-2023: Mild cardiomegaly. Stable.
CXR 12-17-2023:
1. Pulmonary artery catheter is turned upon itself within the right atrium. Repositioning recommended.
2. Endotracheal tube in position. Chest drains in position.
3. Tiny right apical pneumothorax.
4. Left basilar opacification, probable combination of small effusion and adjacent atelectasis/consolidation.
Subjective Dataa
Subjective Data
Date of Service:
Date of Service: December 18, 2023
Chief Complaint: Stripe Matcher Follow Up
Subjective:
Seen today, he feels well. Has some chest pain at the operative site but otherwise feels okay. He is on room air breathing comfortably, saturating 96%, BP 117/73 and heart rate 75.
Review of Systems
General: Other (Negative unless mentioned above)
Objective Data
Data Reviewed
Vital Signs / I&O / Oxygen:
Vital Signs
Temp Pulse Resp BP Pulse Ox
97.7 F 73 18 117/73 96
12/18/23 12:38 12/18/23 13:05 12/18/23 12:38 12/18/23 12:00 12/18/23 13:10
Intake and Output
12/17/23 12/18/23 12/19/23
06:59 06:59 06:59
Intake Total 547.3 / 547.3 532.1 / 532.1
Output Total 1290 / 1290 550 / 550
Balance -742.7 / -742.7 -17.9 / -17.9
SaO2 [CPAP] 100
SaO2 [SIMV] 96
SaO2 96
Nasal Cannula flow liters per 2
minute
Physical Exam
General: Respiratory Distress (Negative) and Comfortable
HEENT: Normocephalic and Anicteric
Cardiovascular: S1-S2, Peripheral Edema (Negative) and Other (Occasionally irregular)
Respiratory: Wheeze (Negative), Crackles (Negative), Rhonchi (Negative), Non-Labored Respirations and Chest Tube (Mediastinal X2)
GI: Soft, Non Distended and Non Tender
Neurology: AO x 3 and Tremors (Negative)
Skin: Warm, Dry and Cyanosis (Negative)
Labs/Micro/Reports
Lab Data
12/18/23 03:18
12/18/23 03:18
Laboratory Results
12/17/23 12/18/23
19:54 03:18
PT 16.9 H
INR 1.39
pH 7.43
pCO2 26 L
pO2 129 H
HCO3 17.3 L
O2 Delivery Level
--- NOTE | 2023-12-18 12:56 | PTCARENOTE ---
decrease in urine out put, bladder scanned for 265 ml, irrigated with out difficulty and then produced 350 ml urine on return. denies pressure or fullness. VSS, No change in assessment from prior
[2023-12-18] MEDS: NSS IV (13:03)
[2023-12-18] MEDS: FERRLECIT 110 MG IV (14:09)
[2023-12-18 14:14] LABS: Glucose - Point of Care 139 mg/dl (70-99)
[2023-12-18] MEDS: PACERONE 200 MG PO ×2 (16:25→22:07)
--- NOTE | 2023-12-18 16:30 | PTCARENOTE ---
Tolerated sitting up in the chair x 3 hours. Denies pain. Tylenol as needed. Chest tube maintained. Storm continues to drain brownish urine. VSS. Assessment unchanged from prior
[2023-12-18 17:59] LABS: Glucose - Point of Care 131 mg/dl (70-99)
--- NOTE | 2023-12-18 20:15 | PTCARENOTE ---
Assumed care of patient at 1900. Patient found in bed at time of assessment. Patient is Aox4, follows commands appropriately, moves all extremities. Lung sounds are diminished throughout, saO2 92% on RA, patient has CTx2: 2xmeds draining red
sanguineous to one atrium. Heart sounds have a regular rate and rhythm. There is a rub audible on auscultation. Patient is SR with first degree AV block and LBBB occasional V pacing. Patient has VVI settings. There is trace pedal edema present.
Patient has audible BS throughout all four quadrants, +flatus, no postop BM yet. Patient has markham catheter draining brown urine. 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 R groin puncture approx with surg adhesive ecchymotic and
MAYR. A RLE incision approx with surg adhesive ecchymotic and MARY. Patient has no complaints at this time. VSS.
[2023-12-19] VITALS (19 sets, daily range): BP systolic 105–153; BP diastolic 62–86; PULSE 52; O2SAT 96–97; BMI 29.3
--- NOTE | 2023-12-19 | PTCARENOTE ---
Patient reassessed. VSS. Remains SR with first deg AV block and BBB. Occasionally V paced. Good UOP. Patient received scheduled tylenol and prn flexeril HS for pain.
--- NOTE | 2023-12-19 02:47 | W.PN.CT ---
Today's Communication / Plan
-
-Attempted to wean off dobutamine gtt but noted to be bradycardic @ 50 bpm with pauses. Intermittently V paced, Amiodarone and BB on hold for now
-hematuria clearing, markham in situ, flushed x1. Urology consulted, cleared for removal. plan to remove this AM for voiding trial.
-UOP 225/965 in 12/[address] output 2M: 90/280 in 12/24 hrs
-Cont. current meds (ASA, Amiodarone, Toprol XL; will discuss Plavix for SVG patency - possibly resume Xarelto on POD#4)
-Will discuss timing of heparin gtt (will likely avoid today since pt currently has hematuria) given a-fib/MAZE/MV repair until able to resume Xarelto
-Maintain temporary PW (will likely cut if requiring heparin to Xarelto)
-Maintain cordis
-Encourage use of IS
-Wean off of O2 as tolerated
-OOB into chair/Ambulate
-Planning for repeat echo to re-evaluate MV and TV repair, LV and RV function prior to d/c home
Assessment / Plan
-
Assessment:
-S/P Redo sternotomy with extensive adhesiolysis, modifier 22, with central aortic and bicaval cannulation/Complex mitral valve repair [40 mm band annuloplasty, 5 pairs of CV 4 [place]-Tyler placed to going to the anterior leaflet, cleft closure between
P1/P2 and P2/P3, free edge remodeling of the posterior leaflet]/Tricuspid valve repair [34 mm band annuloplasty]/ ASD closure/CABG x 1 [aorto to reverse saphenous vein graft to distal RCA]/ R EVH /Left atrial maze using cryoablation, by Dr. Cerrato,
12/17/23, pod#2
-Severe MR
-Moderate TR
-CAD
-Hx CABG x 2 (FLORES-LAD, SVG-OM1), 05/05/2020
-Persistent A-fib S/P PVI x 3 (11/21/22, 06/25/22, 11/30/11); S/p Cardioversion x 4 (11/27/23, 05/11/20, 05/09/20, 10/31/18)
-Iatrogenic ASD from multiple ablations with left to right shunt
-Acute on chronic Diastolic CHF
-LVEF 60-65% per echo 11/28/23; EF 45-50% per intraop ORLIN
-Hx of sternal dehiscence
-hx DVT
-Questionable Factor V Leiden
-HTN
-Hyperlipidemia (Statin intolerance)
-Prediabetes (A1C 5.8)
-Class 1 obesity (BMI 30)
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
-Chronic lower back pain
-Chronic postnasal drip
-Childhood Asthma
-LE Edema
-BPH
-Gout
-Psoriasis
-Diverticulosis with hx diverticulitis, 2020
-Colon polyps S/P polypectomy
-S/P inguinal hernia repair
-S/P blepharoplasty
-S/P bilateral cataracts
-S/P R foot surgery
-S/P Tonsillectomy
-Acute postop blood loss/Anemia (stable without PRBC transfusion)
-Acute intraop/postop thrombocytopenia (transfused 1 {5pk} plts)
-Acute postop atelectasis/pleural effusion
-Acute postop tiny right apical ptx (stable)
-Acute postop hypovolemia with subsequent hypervolemia
-Acute intraop/postop mild RV dysfunction (started on low dose dobutamine gtt)
-Acute postop hematuria (stable without clots, no CBI per Urology)- clearing
Subjective
Procedure
-S/P Redo sternotomy with extensive adhesiolysis, modifier 22, with central aortic and bicaval cannulation/Complex mitral valve repair [40 mm band annuloplasty, 5 pairs of CV 4 [place]-Tyler placed to going to the anterior leaflet, cleft closure between
P1/P2 and P2/P3, free edge remodeling of the posterior leaflet]/Tricuspid valve repair [34 mm band annuloplasty]/ ASD closure/CABG x 1 [aorto to reverse saphenous vein graft to distal RCA]/ R EVH /Left atrial maze using cryoablation, by Dr. Cerrato,
12/17/23
-
Date of Service: December 19, 2023
No overnight events. Feels well. maintained NSR, pauses with intermittent V pacing
Objective Data
-
PT 16.9 Sec (11.4-14.6) H 12/18/23 03:18
INR 1.39 12/18/23 03:18
APTT 31.5 Sec (23.4-35.0) 12/17/23 14:13
Vital Signs
Vital Signs
Temp Pulse Resp BP Pulse Ox
97.7 F 62 18 134/79 93
12/18/23 23:00 12/19/23 00:00 12/18/23 23:00 12/18/23 23:00 12/18/23 23:00
CT Intake/Output/Weight
12/18/23 12/18/23 12/19/23
06:59 18:59 06:59
Intake Total 306.4 / 547.3 532.1 / 532.1
Output Total 660 / 1290 930 / 1245 315 / 1245
Balance -353.6 / -742.7 -397.9 / -712.9 -315 / -712.9
SaO2: 93
Physical Exam
-
General: Awake, Oriented and AOx3
Cardiovascular: Regular rate & rhythm, Rub and No Gallop
Respiratory: Clear and Equal
Sternum: Stable and Unstable
Incision: Clean, Dry and Intact
Extremities: No Edema
Data Reviewed
-
Lab Results: Results Reviewed
Medications: Active Meds Reviewed
Chest X-Ray: Report Reviewed
ECG: Report Reviewed
--- NOTE | 2023-12-19 04:00 | PTCARENOTE ---
Patient reassessed. VSS. No c/o pain at this time. AM labs obtained. Remains SR with first deg AV block with BBB.
[2023-12-19 05:05] LABS: Hematocrit 29.2 % (39.0-52.0); Hemoglobin 10.1 g/dL (13.0-18.0); Mean Corp Hgb Conc. 34.6 g/dL (33.0-37.0); Mean Corpuscular Hgb 31.9 pg (27.0-31.0); Mean Corpuscular Volume 92.1 fL (80.0-94.0); Mean Platelet Volume 9.8 fL (7.4-10.4); Platelet Count 134 10^3/uL (130-400); Red Blood Cell Count 3.17 10^6/uL (4.70-6.10); Red Cell Dist. Width 13.9 % (11.5-14.5); White Blood Cell Count 8.7 10^3/uL (4.8-10.8)
[2023-12-19 05:24] LABS: INR 1.31; PT 16.1 Sec (11.4-14.6)
[2023-12-19 05:28] LABS: Blood Urea Nitrogen 34 mg/dl (9-20); Calcium 8.6 mg/dl (8.4-10.2); Carbon Dioxide 25 mmol/L (22-30); Chloride 103 mmol/L (98-107); Estimated Creatinine Clearance 78 ml/min; Glucose 121 mg/dl (70-99); Potassium 4.9 mmol/L (3.5-5.1); Sodium 135 mmol/L (135-145); eGFR > 60.00
[2023-12-19] MEDS: TYLENOL 1000 MG PO ×3 (06:20→21:16)
[2023-12-19] MEDS: NSS IV (08:16)
[2023-12-19] MEDS: LIDOCAINE 4% PATCH 1 PATCH TOPICAL (08:23)
[2023-12-19] MEDS: BACTROBAN 2% OINTMENT 1 APPLIC NASAL ×2 (08:23→21:18)
[2023-12-19] MEDS: FLEXERIL 5 MG PO (08:23)
[2023-12-19] MEDS: SENOKOT-S 1 TABLET PO ×2 (08:24→21:16)
[2023-12-19] MEDS: NEURONTIN 100 MG PO ×3 (08:24→21:16)
[2023-12-19] MEDS: LOW STRENGTH ASPIRIN 81 MG PO (08:24)
[2023-12-19] MEDS: PROTONIX 40 MG PO (08:24)
[2023-12-19] MEDS: LASIX 40 MG IV (08:24)
--- NOTE | 2023-12-19 08:31 | W.PN.CARDCBS ---
Today's Communication / Plan
-
PLAN:
-Hold beta clarita and amiodarone
-Continue to monitor on telemetry
-Will need echo with II/ murmur LLSB and apex
-Pneumatic compression given history of Factor V and DVT. Still off OAC
Impression / Plan
-
Primary Care Provider: Dr. Adler
Primary Tenter: Dr. Pepe Davila
IMPRESSION:
-Redo sternotomy with the following operation:
Mitral valve repair with [place]-Tyler neocords, cleft closure and annuloplasty ring (40mm annuloplasty band)
Tricuspid valve repair with annuloplasty ring 34 mm annuloplasty band
CABG x 1 with SVG-RCA
ASD closure
LA Maze
-Sinus rhythm 1st degree AVB and Wenckebach. Occasional PAC with ventricular paced beats
-Coronary artery disease with prior CABG 05/05/2022
Catheterization from 12/03/2023: FLORES-LAD: widely patent, SVG-OM 100% occluded and RCA 100% occluded
-Paroxysmal atrial fibrillation : Recent admission for sotalol load then stopped after unsuccessful cardioversion
s/p PVI 11/30/11, s/p PVI 06/25/22, s/p PVI 11/21/22
-HTN
-History of Factor V Leiden with prior DVT
-Hyperlipidemia with statin intolerance
Echo 04/18/20: Ejection fraction 50%, bileaflet mitral valve prolapse with moderate MR
Echo 06/21/20: EF 55-60%, stage I diastolic dysfunction, mod to sev eccentric MR, mild TR, dilated aortic root with Sinus of Valsalva measuring 4.4 cm., sinotubular junction measures 4.2 cm.; ascending aorta measures 4.0 cm.
Echo 11/25/23: EF 60-65%, severe biatrial dilatation, mod to sev MR, mild aortic insufficiency, mod TR with PAP 55-60 mmHg
PLAN:
-SR w Wenckebach:
Hold beta clarita and amiodarone for now
Will follow rhythm
-Repeat echocardiogram to reassess MV and TV repairs in a few days
Still has murmur of MR at apex I-II/
-Factor V Leiden with prior DVT:
Xarelto on hold. Dr. Cerrato thinking may resume on POD#4. Chest tubes still in place
DVT prophylaxis either w pneumatic compression
-Chest tubes in place
HPI: Patient came to today for direct admission for sotalol loading for persistent Afib. Patient with previous PVI 11/30/11 and then recurred after CABG 04/2020 and was managed with amiodarone for a period of time and then it was stopped. He then
had a recurrent PVI 06/25/22. He recurred with Afib and had another PVI 11/21/22. Most recently he has recurred with Afib and does not always feel palpitations, but feels SOB, HANSEN and sometimes still feels palpitations. He says he is tired. He has
increased LE edema that is worse following discontinuation of HCTZ at last office visit 10/31/23. No orthopnea.
Progress Note - Tenter
Subjective
Date of Service: December 19, 2023
Feeling a little better but still quite sore and tired
Objective
Labs:
12/19/23 04:47
12/19/23 04:47
Labs
Hgb 10.1 g/dL (13.0-18.0) L 12/19/23 04:47
Hct 29.2 % (39.0-52.0) L 12/19/23 04:47
Plt Count 134 10^3/uL (130-400) 12/19/23 04:47
PT 16.1 Sec (11.4-14.6) H 12/19/23 04:47
INR 1.31 12/19/23 04:47
APTT 31.5 Sec (23.4-35.0) 12/17/23 14:13
Sodium 135 mmol/L (135-145) 12/19/23 04:47
Potassium 4.9 mmol/L (3.5-5.1) 12/19/23 04:47
BUN 34 mg/dl (9-20) H 12/19/23 04:47
Creatinine 1.0 mg/dL (0.7-1.3) 12/19/23 04:47
Glucose 121 mg/dl (70-99) H 12/19/23 04:47
Vital Signs and I&O:
Vital Signs
Temp Pulse Resp BP Pulse Ox
98 F 55 18 132/64 95
12/19/23 07:44 12/19/23 08:24 12/19/23 07:44 12/19/23 08:24 12/19/23 07:54
Vital Signs
Temp Pulse Resp BP Pulse Ox
98 F 55 18 132/64 95
12/19/23 07:44 12/19/23 08:24 12/19/23 07:44 12/19/23 08:24 12/19/23 07:54
Intake & Output
12/16/23 12/17/23 12/18/23 12/19/23
23:59 23:59 23:59 23:59
Intake Total 381.4 / 381.4 698.0 / 698.0
Output Total 930 / 930 1605 / 1605 590 / 590
Balance -548.6 / -548.6 -907.0 / -907.0 -590 / -590
Physical Exam
Physical Exam
Gen: Seen sitting in chair
HEENT: NC/AT, sclera anicteric
Lungs: Chest tubes in place. Diminished at bases
CV: Irreg Rhythm (Sinus rhythm with Wenckebach). II/ murmur at LLSB and apex
Ext: No edema
--- NOTE | 2023-12-19 10:14 | PTCARENOTE ---
Patient received from office machines wirer resting oob in chair, AAO x 3, medicated for pain (see MAR). EKG performed to assess rhythm, SaO2 @ 96% on RA. Epicardial A+V wires to pulse generator set to 45 bpm, occasional spikes noted. Mediastinal chest tubes
x 2, Y-connected to one pleurevac, no air leak noted. All procedural sites stable - small hematoma noted to sternum, pressure dressing applied. Patient updated to plan of care for the day, in agreement. See work list for full assessment and
interventions performed.
--- NOTE | 2023-12-19 12:06 | PTCARENOTE ---
VS obtained, assessment stable. Remains resting in bed, partner at bedside for visit.
[2023-12-19] MEDS: FERRLECIT 110 MG IV (13:58)
--- NOTE | 2023-12-19 20:10 | PTCARENOTE ---
Assumed care of patient at 1900. Patient found OOB in chair at time of assessment. Patient is AOx4 follows commands appropriately moves all extremities. Lung sounds are clear and equal bilat. saO2 at 94% on RA. Patient has CTx2, medsx2 to one atrium
draining red sanguineous drainage. Heart sounds have an irregular apical rate. Patient appears to be in 2nd degree type 1 rhythm on the filter tank tender helper head. Patient has normal palpable pulses and trace pedal edema. Patient has soft nontender abdomen
with active BS throughout all four quadrant no post op BM yet. Patient is voiding clear yellow in urinal. Patient has sternal incision that is approx with surg adhesive RESIDENTIAL THERAPIST, but pressure dressing applied to superior aspect of incision during day due
to ecchymosis. Patient has R groin puncture approx with surg adhesive RESIDENTIAL THERAPIST and a RLE incision approx with surg adhesive RESIDENTIAL THERAPIST. Patient has R hand and L AC PIV. No c/o pain. VSS.
[2023-12-20] VITALS (10 sets, daily range): BP systolic 115–155; BP diastolic 67–90; PULSE 53; O2SAT 99
--- NOTE | 2023-12-20 | PTCARENOTE ---
Patient reassessed. VSS. No c/o pain. Remains SR with 2nd deg type 1 AV block. Occasional v pacing is present. Patient is stable.
[2023-12-20] MEDS: HEPARIN 5000 UNITS SC ×2 (00:08→21:33)
--- NOTE | 2023-12-20 03:22 | PTCARENOTE ---
Patient reassessed. VSS. No c/o pain. Remains SR with 2nd deg type 1 AV block. Occasional v pacing is present. Patient is stable.
[2023-12-20 04:04] LABS: Hematocrit 28.7 % (39.0-52.0); Hemoglobin 9.7 g/dL (13.0-18.0); Mean Corp Hgb Conc. 33.8 g/dL (33.0-37.0); Mean Corpuscular Hgb 31.8 pg (27.0-31.0); Mean Corpuscular Volume 94.1 fL (80.0-94.0); Mean Platelet Volume 9.7 fL (7.4-10.4); Platelet Count 129 10^3/uL (130-400); Red Blood Cell Count 3.05 10^6/uL (4.70-6.10); Red Cell Dist. Width 13.6 % (11.5-14.5); White Blood Cell Count 7.3 10^3/uL (4.8-10.8)
[2023-12-20 04:14] LABS: INR 1.18; PT 14.9 Sec (11.4-14.6)
--- NOTE | 2023-12-20 04:32 | PTCARENOTE ---
Patient reassessed. VSS. SB on monitor with second degree type 1 AV block as well as BBB. AM labs obtained. AM EKG obtained.
[2023-12-20 05:00] LABS: Blood Urea Nitrogen 31 mg/dl (9-20); Calcium 8.6 mg/dl (8.4-10.2); Carbon Dioxide 25 mmol/L (22-30); Chloride 101 mmol/L (98-107); Estimated Creatinine Clearance 87 ml/min; Glucose 109 mg/dl (70-99); Magnesium 2.1 mg/dl (1.6-2.3); Sodium 132 mmol/L (135-145); eGFR > 60.00
--- NOTE | 2023-12-20 07:01 | W.PN.CT ---
Today's Communication / Plan
-
-pod #3
-pranav overnight 50s with occasional V-pacing (pw @ VVI 40 backup)
-NPO today until evaluated by EP for possible pacer
-holding BB and Amio
-CT output: 2 meds 95/245 in 12/24 hrs
-follow platelets - 129K today (134 on 12/18)
-on sq Heparin for hx b/l DVTs - held this am for possible pacer. Will need it resumed if no pacer implanted
-encourage IS, OOB
Assessment / Plan
-
Assessment:
-S/P Redo sternotomy with extensive adhesiolysis, modifier 22, with central aortic and bicaval cannulation/Complex mitral valve repair [40 mm band annuloplasty, 5 pairs of CV 4 [place]-Tyler placed to going to the anterior leaflet, cleft closure between
P1/P2 and P2/P3, free edge remodeling of the posterior leaflet]/Tricuspid valve repair [34 mm band annuloplasty]/ ASD closure/CABG x 1 [aorto to reverse saphenous vein graft to distal RCA]/ R EVH /Left atrial maze using cryoablation, by Dr. Cerrato,
12/17/23, pod#3
-Severe MR
-Moderate TR
-CAD
-Hx CABG x 2 (FLORES-LAD, SVG-OM1), 05/05/2020
-Persistent A-fib S/P PVI x 3 (11/21/22, 06/25/22, 11/30/11); S/p Cardioversion x 4 (11/27/23, 05/11/20, 05/09/20, 10/31/18)
-Iatrogenic ASD from multiple ablations with left to right shunt
-Acute on chronic Diastolic CHF
-LVEF 60-65% per echo 11/28/23; EF 45-50% per intraop ORLIN
-Hx of sternal dehiscence
-hx DVT
-Questionable Factor V Leiden
-HTN
-Hyperlipidemia (Statin intolerance)
-Prediabetes (A1C 5.8)
-Class 1 obesity (BMI 30)
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
-Chronic lower back pain
-Chronic postnasal drip
-Childhood Asthma
-LE Edema
-BPH
-Gout
-Psoriasis
-Diverticulosis with hx diverticulitis, 2019
-Colon polyps S/P polypectomy
-S/P inguinal hernia repair
-S/P blepharoplasty
-S/P bilateral cataracts
-S/P R foot surgery
-S/P Tonsillectomy
-Acute postop blood loss/Anemia (stable without PRBC transfusion)
-Acute intraop/postop thrombocytopenia (transfused 1 {5pk} plts)
-Acute postop atelectasis/pleural effusion
-Acute postop tiny right apical ptx (stable)
-Acute postop hypovolemia with subsequent hypervolemia
-Acute intraop/postop mild RV dysfunction (started on low dose dobutamine gtt)
-Acute postop hematuria (stable without clots, no CBI per Urology)- clearing
-Acute postop hyponatremia
Discussed patient care with: Nursing and Care Team
Subjective
Procedure
-S/P Redo sternotomy with extensive adhesiolysis, modifier 22, with central aortic and bicaval cannulation/Complex mitral valve repair [40 mm band annuloplasty, 5 pairs of CV 4 [place]-Tyler placed to going to the anterior leaflet, cleft closure between
P1/P2 and P2/P3, free edge remodeling of the posterior leaflet]/Tricuspid valve repair [34 mm band annuloplasty]/ ASD closure/CABG x 1 [aorto to reverse saphenous vein graft to distal RCA]/ R EVH /Left atrial maze using cryoablation, by Dr. Cerrato,
12/17/23
-
Date of Service: December 20, 2023
Objective Data
-
Lab Results
12/20/23 03:54
12/20/23 03:54
PT 14.9 Sec (11.4-14.6) H 12/20/23 03:54
INR 1.18 12/20/23 03:54
APTT 31.5 Sec (23.4-35.0) 12/17/23 14:13
Vital Signs
Vital Signs
Temp Pulse Resp BP Pulse Ox
97.7 F 47 18 132/67 97
12/20/23 03:00 12/20/23 04:25 12/20/23 03:00 12/20/23 03:34 12/20/23 04:10
CT Intake/Output/Weight
12/19/23 12/20/23 12/20/23
18:59 06:59 18:59
Intake Total 480 / 480
Output Total 1200 / 1895 695 / 1895
Balance -720 / -1415 -695 / -1415
SaO2: 97
Physical Exam
-
General: Awake and AOx3
Cardiovascular: Regular rate & rhythm, No Murmurs and No Rub
Respiratory: Decreased Breath Sounds
Sternum: Stable
Incision: Clean, Dry and Intact (pressure dressing is on)
Extremities: No Edema
Data Reviewed
-
Lab Results: Results Reviewed
Medications: Active Meds Reviewed
Chest X-Ray: Report Reviewed and Image Reviewed
ECG: Report Reviewed and Image Reviewed
[2023-12-20] MEDS: TYLENOL 1000 MG PO ×3 (07:20→21:33)
[2023-12-20] MEDS: NEURONTIN 100 MG PO ×3 (08:00→21:33)
[2023-12-20] MEDS: LOW STRENGTH ASPIRIN 81 MG PO (08:00)
[2023-12-20] MEDS: SENOKOT-S 1 TABLET PO ×2 (08:00→20:37)
[2023-12-20] MEDS: PROTONIX 40 MG PO (08:00)
[2023-12-20] MEDS: BACTROBAN 2% OINTMENT 1 APPLIC NASAL ×2 (08:01→20:36)
[2023-12-20] MEDS: LIDOCAINE 4% PATCH 1 PATCH TOPICAL (08:09)
--- NOTE | 2023-12-20 08:26 | PTCARENOTE ---
Rec'd pt this shift awake and alert in bed. Pt CHB, 2nd degree HB Type 2 noted on monitor. Pt denies pain, denies sob. Pt NPO today. See worklist for VS/I and O and assessments.
--- NOTE | 2023-12-20 08:40 | W.PN.CARDCBS ---
Today's Communication / Plan
-
-I am doubtful that he will need pacemaker. Will ask EP to review telemetry strips.
-Echo looks great
-Increase mobilization to see HR trends when walking
Impression / Plan
-
Primary Care Provider: Dr. Adler
Primary [employer]: Dr. Pepe Davila
IMPRESSION:
-Redo sternotomy with the following operation:
Mitral valve repair with [place]-Tyler neocords, cleft closure and annuloplasty ring (40mm annuloplasty band)
Tricuspid valve repair with annuloplasty ring 34 mm annuloplasty band
CABG x 1 with SVG-RCA
ASD closure
LA Maze
-Sinus rhythm 1st degree AVB and Wenckebach.
-Coronary artery disease with prior CABG 05/05/2022
Catheterization from 12/03/2023: FLORES-LAD: widely patent, SVG-OM 100% occluded and RCA 100% occluded
-Paroxysmal atrial fibrillation : Recent admission for sotalol load then stopped after unsuccessful cardioversion
s/p PVI 11/30/11, s/p PVI 06/25/22, s/p PVI 11/21/22
Maintaining SR
-HTN
-History of Factor V Leiden with prior DVT
-Hyperlipidemia with statin intolerance
Echo 04/18/20: Ejection fraction 50%, bileaflet mitral valve prolapse with moderate MR
Echo 06/21/20: EF 55-60%, stage I diastolic dysfunction, mod to sev eccentric MR, mild TR, dilated aortic root with Sinus of Valsalva measuring 4.4 cm., sinotubular junction measures 4.2 cm.; ascending aorta measures 4.0 cm.
Echo 11/25/23: EF 60-65%, severe biatrial dilatation, mod to sev MR, mild aortic insufficiency, mod TR with PAP 55-60 mmHg
Echo 12/19/2023: LV: EF 55% mild LVH. LA: Mildly dilated, MV: s/p MV repair with mean gradient 2 mmHg. AV: Thickened and mild AI. TV: s/p TV repair
PLAN:
-SR w Wenckebach:
Hold beta clarita and amiodarone for now
No pacing over night
-Factor V Leiden with prior DVT:
Xarelto on hold. Dr. Cerrato thinking may resume on POD#4. Chest tubes still in place
DVT prophylaxis either w pneumatic compression
-Chest tubes in place
-Discussed with primary team. Will discuss with EP and discussed with patient (50 min spent reviewing telemetry strips, examining and discussion with patient, discussion with CT,EP)
HPI: Patient came to today for direct admission for sotalol loading for persistent Afib. Patient with previous PVI 11/30/11 and then recurred after CABG 04/2020 and was managed with amiodarone for a period of time and then it was stopped. He then
had a recurrent PVI 06/25/22. He recurred with Afib and had another PVI 11/21/22. Most recently he has recurred with Afib and does not always feel palpitations, but feels SOB, HANSEN and sometimes still feels palpitations. He says he is tired. He has
increased LE edema that is worse following discontinuation of HCTZ at last office visit 10/31/23. No orthopnea.
Progress Note - [employer]
Subjective
Date of Service: December 20, 2023
Feeling well. No complaints
Objective
Labs:
12/20/23 03:54
12/20/23 03:54
Labs
Hgb 9.7 g/dL (13.0-18.0) L 12/20/23 03:54
Hct 28.7 % (39.0-52.0) L 12/20/23 03:54
Plt Count 129 10^3/uL (130-400) L 12/20/23 03:54
PT 14.9 Sec (11.4-14.6) H 12/20/23 03:54
INR 1.18 12/20/23 03:54
APTT 31.5 Sec (23.4-35.0) 12/17/23 14:13
Sodium 132 mmol/L (135-145) L 12/20/23 03:54
Potassium 4.0 mmol/L (3.5-5.1) 12/20/23 03:54
BUN 31 mg/dl (9-20) H 12/20/23 03:54
Creatinine 0.9 mg/dL (0.7-1.3) 12/20/23 03:54
Glucose 109 mg/dl (70-99) H 12/20/23 03:54
Vital Signs and I&O:
Vital Signs
Temp Pulse Resp BP Pulse Ox
98.7 F 59 18 144/67 98
12/20/23 07:50 12/20/23 08:10 12/20/23 07:50 12/20/23 07:42 12/20/23 08:16
Vital Signs
Temp Pulse Resp BP Pulse Ox
98.7 F 59 18 144/67 98
12/20/23 07:50 12/20/23 08:10 12/20/23 07:50 12/20/23 07:42 12/20/23 08:16
Intake & Output
12/17/23 12/18/23 12/19/23 12/20/23
23:59 23:59 23:59 23:59
Intake Total 381.4 / 381.4 698.0 / 698.0 480 / 480
Output Total 930 / 930 1605 / 1605 1780 / 1780 645 / 645
Balance -548.6 / -548.6 -907.0 / -907.0 -1300 / -1300 -645 / -645
Physical Exam
Physical Exam
Gen: Seen sitting in chair
HEENT: NC/AT, sclera anicteric
Lungs: Chest tubes in place. Diminished at bases
CV: Irreg Rhythm (Sinus rhythm with Wenckebach). II/ murmur at LLSB and apex
Ext: No edema
[2023-12-20] MEDS: NSS IV (11:11)
--- NOTE | 2023-12-20 11:52 | W.PN.UPDATE ---
Addendum entered and electronically signed by Al Walton DO 12/20/23 12:01:
Would strongly encourage ambulation and HR monitoring to see how conduction system behaves with increased activity.
Original Note:
Update Note
Progress Note Update
Telemetry and EKG reviewed; appears sinus rhythm with second degree type 1 AVB. Additionally, patient had brief runs of PAT vs accelerated junction rhythm. Discussed with CT surgery team including Dr. Cerrato. Patient remains asymptomatic currently
with stable vitals. No current indication for pacemaker. Monitor on telemetry and if no worsening change to rhythm, extended MCT. Avoid AVN blocking agents for now.
--- NOTE | 2023-12-20 13:42 | PTCARENOTE ---
Mediastinal x2 chest tubes removed per CVNP order.
[2023-12-20] MEDS: FERRLECIT 110 MG IV (14:28)
--- NOTE | 2023-12-20 15:06 | PTCARENOTE ---
Pt received from outgoing RN. Pt Ox3 and appropriate, ALEGRIA. 1� AVB with PAC's on tele. V wire connected to box with pacer off. CT's removed, pt tolerated well. Using IS- pulling up to 2L, clear breath sounds TO. Pt using urinal without difficulty,
passing dark yan urine. Diet ordered, good appetite. R groin puncture site intact. R knee incision CDI. Pressure dressing over sternum intact. R hand Iv infiltrated- removed. L AC site redressed.
--- NOTE | 2023-12-20 15:15 | CM ---
CM following for DC planning needs.
Met w/ patient at bedside. He reports that he is feeling well. He is hopeful for DC over weekend.
Reviewed post op appointments, Cardiac Rehab and visit from [facility]itional [facility] RN.
Plan for DC to home w/ [facility]itional [facility] RN.
CM to follow.
--- NOTE | 2023-12-20 21:00 | PTCARENOTE ---
Patient received resting in bed watching television. Patient A+A+Ox3. No neurological deficits noted. No c/o headache, dizziness or lightheadedness. No s/s of respiratory distress. Room air. SaO2 99%. Chest tube dressing intact. Sinus
Bradycardia to Sinus Rhythm with First Degree AV Block. BBC. PAC's. Occasional PVC. HR 50-60's. Epicardial Temporary Pacemaker - VVI. Patient with no c/o chest pain, pressure or discomfort. Normoactive bowel sounds. No BM. No c/o nausea.
No vomiting. Voiding without difficulty. Patient with no c/o back or flank pain. Sternal incision with surgical adhesive - Pressure dressing - Removed by PA - Now open to air - No bleeding noted. Bilateral groin dressings intact. Bilateral
groins with ecchymosis. Positive, palpable pulses. Assessment as documented.
--- NOTE | 2023-12-21 | PTCARENOTE ---
Patient sleeping without difficulty. No further changes from previous assessment.
[2023-12-21 05:22] VITALS: BP 145/73
[2023-12-21 05:24] VITALS: BP 145/73
[2023-12-21] MEDS: TYLENOL 1000 MG PO (05:28)
[2023-12-21 05:59] LABS: Hematocrit 27.8 % (39.0-52.0); Hemoglobin 9.5 g/dL (13.0-18.0); Mean Corp Hgb Conc. 34.2 g/dL (33.0-37.0); Mean Corpuscular Hgb 31.8 pg (27.0-31.0); Mean Platelet Volume 9.6 fL (7.4-10.4); Platelet Count 140 10^3/uL (130-400); Red Blood Cell Count 2.99 10^6/uL (4.70-6.10); Red Cell Dist. Width 13.7 % (11.5-14.5); White Blood Cell Count 5.1 10^3/uL (4.8-10.8)
[2023-12-21 06:00] VITALS: BMI 29.2
[2023-12-21 06:11] LABS: Blood Urea Nitrogen 23 mg/dl (9-20); Calcium 8.5 mg/dl (8.4-10.2); Carbon Dioxide 25 mmol/L (22-30); Chloride 102 mmol/L (98-107); Estimated Creatinine Clearance 111 ml/min; Glucose 104 mg/dl (70-99); Magnesium 2.1 mg/dl (1.6-2.3); Potassium 3.9 mmol/L (3.5-5.1); Sodium 133 mmol/L (135-145); eGFR > 60.00
--- NOTE | 2023-12-21 06:15 | PTCARENOTE ---
Patient A+A+Ox3. No neurological deficits noted. Patient with no c/o headache, dizziness or lightheadedness. AM lab work collected and sent. New peripheral IV site placed by IV Team - #22P Right arm. Patient given CHG bath and linens changed.
Sternal incision intact - Surgical adhesive - Open to air - Proximal portion continues with raised, swollen area - Area marked. Chest tube dressing changed. V-Wire intact. Bilateral groin dressings intact - Ecchymosis. Right knee incision -
Surgical adhesive - Intact - Open to air - Ecchymosis. OOB to chair without difficulty - Minimal assistance. Standing scale weight 111.5 kg. Assessment/Interventions as documented.
--- NOTE | 2023-12-21 06:50 | W.PN.CT ---
Today's Communication / Plan
-
-pod #4
-pt ambulated in hallways yesterday without any dizziness, denies any complaints
-overnight with nsr with Mobitz 1 (pw off overnight)- plans to cut pw today
-Rhythm Star monitor placed on 12/19
-holding off on BB and Amio
-sq Heparin for hx b/l DVTs
-monitor small incisional hematoma. h/h and plat are stable
-continue to ambulate, encourage IS
Assessment / Plan
-
Assessment:
-S/P Redo sternotomy with extensive adhesiolysis, modifier 22, with central aortic and bicaval cannulation/Complex mitral valve repair [40 mm band annuloplasty, 5 pairs of CV 4 [place]-Tyler placed to going to the anterior leaflet, cleft closure between
P1/P2 and P2/P3, free edge remodeling of the posterior leaflet]/Tricuspid valve repair [34 mm band annuloplasty]/ ASD closure/CABG x 1 [aorto to reverse saphenous vein graft to distal RCA]/ R EVH /Left atrial maze using cryoablation, by Dr. Cerarto,
12/17/23, pod#4
-Severe MR
-Moderate TR
-CAD
-Hx CABG x 2 (FLORES-LAD, SVG-OM1), 05/05/2020
-Persistent A-fib S/P PVI x 3 (11/21/22, 06/25/22, 11/30/11); S/p Cardioversion x 4 (11/27/23, 05/11/20, 05/09/20, 10/31/18)
-Iatrogenic ASD from multiple ablations with left to right shunt
-Acute on chronic Diastolic CHF
-LVEF 60-65% per echo 11/28/23; EF 45-50% per intraop ORLIN
-Hx of sternal dehiscence
-hx DVT
-Questionable Factor V Leiden
-HTN
-Hyperlipidemia (Statin intolerance)
-Prediabetes (A1C 5.8)
-Class 1 obesity (BMI 30)
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
-Chronic lower back pain
-Chronic postnasal drip
-Childhood Asthma
-LE Edema
-BPH
-Gout
-Psoriasis
-Diverticulosis with hx diverticulitis, 2019
-Colon polyps S/P polypectomy
-S/P inguinal hernia repair
-S/P blepharoplasty
-S/P bilateral cataracts
-S/P R foot surgery
-S/P Tonsillectomy
-Acute postop blood loss/Anemia (stable without PRBC transfusion)
-Acute intraop/postop thrombocytopenia (transfused 1 {5pk} plts)
-Acute postop atelectasis/pleural effusion
-Acute postop tiny right apical ptx (stable)
-Acute postop hypovolemia with subsequent hypervolemia
-Acute intraop/postop mild RV dysfunction (started on low dose dobutamine gtt)
-Acute postop hematuria (stable without clots, no CBI per Urology)- clearing
-Acute postop hyponatremia
-Acute postop chest incision small hematoma at the upper border
Discussed patient care with: Nursing and Care Team
Subjective
Procedure
-S/P Redo sternotomy with extensive adhesiolysis, modifier 22, with central aortic and bicaval cannulation/Complex mitral valve repair [40 mm band annuloplasty, 5 pairs of CV 4 [place]-Tyler placed to going to the anterior leaflet, cleft closure between
P1/P2 and P2/P3, free edge remodeling of the posterior leaflet]/Tricuspid valve repair [34 mm band annuloplasty]/ ASD closure/CABG x 1 [aorto to reverse saphenous vein graft to distal RCA]/ R EVH /Left atrial maze using cryoablation, by Dr. Cerrato,
12/17/23
-
Date of Service: December 21, 2023
Objective Data
-
Lab Results
12/21/23 05:48
12/21/23 05:48
PT 14.0 Sec (11.4-14.6) 12/21/23 05:48
INR 1.10 12/21/23 05:48
APTT 31.5 Sec (23.4-35.0) 12/17/23 14:13
Vital Signs
Vital Signs
Temp Pulse Resp BP Pulse Ox
98.3 F 61 16 145/73 97
12/21/23 05:24 12/21/23 05:24 12/21/23 05:24 12/21/23 05:24 12/21/23 05:24
CT Intake/Output/Weight
12/20/23 12/20/23 12/21/23
06:59 18:59 06:59
Intake Total 720 / 1200 480 / 1200
Output Total 695 / 1895 1050 / 2200 1150 / 2200
Balance -695 / -1415 -330 / -1000 -670 / -1000
SaO2: 97
Physical Exam
-
General: Awake and AOx3
Cardiovascular: Regular rate & rhythm, No Murmurs and No Rub
Respiratory: Decreased Breath Sounds
Sternum: Stable
Incision: Clean, Dry and Intact (small hematoma at upper border of chest incision)
Extremities: Other (trace edema b/l)
Data Reviewed
-
Lab Results: Results Reviewed
Medications: Active Meds Reviewed
Chest X-Ray: Report Reviewed and Image Reviewed
ECG: Report Reviewed and Image Reviewed
[2023-12-21 08:25] VITALS: BP 129/81
[2023-12-21 08:40] VITALS: BP 137/68
[2023-12-21] MEDS: NEURONTIN 100 MG PO (08:54)
[2023-12-21] MEDS: PROTONIX 40 MG PO (08:54)
[2023-12-21 08:55] VITALS: BP 134/70; BP 137/68; PULSE 67; O2SAT 97; O2SAT 98
[2023-12-21] MEDS: SENOKOT-S 1 TABLET PO (08:55)
[2023-12-21] MEDS: LIDOCAINE 4% PATCH 1 PATCH TOPICAL (08:55)
[2023-12-21] MEDS: HEPARIN 5000 UNITS SC (08:55)
[2023-12-21] MEDS: LOW STRENGTH ASPIRIN 81 MG PO (08:55)
[2023-12-21] MEDS: BACTROBAN 2% OINTMENT 1 APPLIC NASAL (08:55)
--- NOTE | 2023-12-21 09:00 | PTCARENOTE ---
Patient received from shift superintendent caustic cresylate resting comfortably oob in chair, AAO X 3, denies pain. NSR w/ectopy via cm, SaO2 @ 97% on RA. Epicardial V-wire to pulse generator, off. All procedural sites stable. Patient updated to plan of care for the day,
including pending d/c home today, in agreement. See work list for full assessment and interventions performed.
[2023-12-21] MEDS: ZESTRIL 20 MG PO (09:07)
--- NOTE | 2023-12-21 09:19 | PTCARENOTE ---
Epicardial V-wire cut by AKHIL Vyas w/latisha RN assist. Patient tolerated well.
[2023-12-21] MEDS: NSS IV (10:12)
--- NOTE | 2023-12-21 10:43 | W.PN.CARDCBS ---
Today's Communication / Plan
-
Okay for discharge with close follow-up with home monitor.
Patient was advised if he has episodes of dizziness or lightheadedness to call or return to the emergency room.
Continue to avoid amiodarone and metoprolol.
Impression / Plan
-
Primary Care Provider: Dr. Adler
Primary Jordan Man: Dr. Pepe Davila
IMPRESSION:
-Redo sternotomy with the following operation:
Mitral valve repair with [place]vin-Tyler neocords, cleft closure and annuloplasty ring (40mm annuloplasty band)
Tricuspid valve repair with annuloplasty ring 34 mm annuloplasty band
CABG x 1 with SVG-RCA
ASD closure
LA Maze
-Sinus rhythm 1st degree AVB and Wenckebach.
-Coronary artery disease with prior CABG 05/05/2022
Catheterization from 12/03/2023: FLORES-LAD: widely patent, SVG-OM 100% occluded and RCA 100% occluded
-Paroxysmal atrial fibrillation : Recent admission for sotalol load then stopped after unsuccessful cardioversion
s/p PVI 11/30/11, s/p PVI 06/25/22, s/p PVI 11/21/22
Maintaining SR
-HTN
-History of Factor V Leiden with prior DVT
-Hyperlipidemia with statin intolerance
Echo 04/18/20: Ejection fraction 50%, bileaflet mitral valve prolapse with moderate MR
Echo 06/21/20: EF 55-60%, stage I diastolic dysfunction, mod to sev eccentric MR, mild TR, dilated aortic root with Sinus of Valsalva measuring 4.4 cm., sinotubular junction measures 4.2 cm.; ascending aorta measures 4.0 cm.
Echo 11/25/23: EF 60-65%, severe biatrial dilatation, mod to sev MR, mild aortic insufficiency, mod TR with PAP 55-60 mmHg
Echo 12/19/2023: LV: EF 55% mild LVH. LA: Mildly dilated, MV: s/p MV repair with mean gradient 2 mmHg. AV: Thickened and mild AI. TV: s/p TV repair
PLAN:
-Continue to have episodes of sinus rhythm with second-degree AV block with no significant pauses. He clinically feels well. After multiple discussions with electrophysiology the plan is for him to have close monitoring at home with a home
monitor. I advised if he gets episodes of dizziness he should call. For now we will again continue to attempt to let AV node recover in the setting of mitral valve and tricuspid valve surgery.
-Continue to hold amiodarone and metoprolol.
Back on Xarelto.
HPI: Patient came to today for direct admission for sotalol loading for persistent Afib. Patient with previous PVI 11/30/11 and then recurred after CABG 04/2020 and was managed with amiodarone for a period of time and then it was stopped. He then
had a recurrent PVI 06/25/22. He recurred with Afib and had another PVI 11/21/22. Most recently he has recurred with Afib and does not always feel palpitations, but feels SOB, HANSEN and sometimes still feels palpitations. He says he is tired. He has
increased LE edema that is worse following discontinuation of HCTZ at last office visit 10/31/23. No orthopnea.
Progress Note - Jordan Man
Subjective
Date of Service: December 21, 2023
Overall feels well with no lightheadedness or dizziness
Objective
Labs:
12/21/23 05:48
12/21/23 05:48
Labs
Hgb 9.5 g/dL (13.0-18.0) L 12/21/23 05:48
Hct 27.8 % (39.0-52.0) L 12/21/23 05:48
Plt Count 140 10^3/uL (130-400) 12/21/23 05:48
PT 14.0 Sec (11.4-14.6) 12/21/23 05:48
INR 1.10 12/21/23 05:48
APTT 31.5 Sec (23.4-35.0) 12/17/23 14:13
Sodium 133 mmol/L (135-145) L 12/21/23 05:48
Potassium 3.9 mmol/L (3.5-5.1) 12/21/23 05:48
BUN 23 mg/dl (9-20) H 12/21/23 05:48
Creatinine 0.7 mg/dL (0.7-1.3) 12/21/23 05:48
Glucose 104 mg/dl (70-99) H 12/21/23 05:48
Vital Signs and I&O:
Vital Signs
Temp Pulse Resp BP Pulse Ox
98 F 72 15 137/68 97
12/21/23 08:32 12/21/23 10:10 12/21/23 08:32 12/21/23 09:07 12/21/23 08:45
Vital Signs
Temp Pulse Resp BP Pulse Ox
98 F 72 15 137/68 97
12/21/23 08:32 12/21/23 10:10 12/21/23 08:32 12/21/23 09:07 12/21/23 08:45
Intake & Output
12/19/23 12/20/23 12/21/23 12/22/23
06:59 06:59 06:59 06:59
Intake Total 532.1 / 532.1 480 / 480 1200 / 1200 240 / 240
Output Total 1775 / 1775 1895 / 1895 2200 / 2200 150 / 150
Balance -1242.9 / -1242.9 -1415 / -1415 -1000 / -1000 90 / 90
Physical Exam
Physical Exam
GEN: No distress, awake, Ox3
HEENT: supple, anicteric, mmm
LUNGS: CTA, no wheezes/rales
CV: Reg, S1/S2, no murmur
ABD: soft, BS+, NT/ND
EXT: No edema
NEURO: Gross non-focal
SKIN: sternotomy
[2023-12-21 11:53] VITALS: BP 132/78
--- NOTE | 2023-12-21 11:55 | PTCARENOTE ---
VS obtained, assessment stable. Patient resting comfortably.
--- NOTE | 2023-12-21 12:06 | W.DCSUMMARY ---
Discharge Summary
Discharge Data
Date of Admission: 12/17/23
Date of Discharge: 12/21/23
-
Pending Results: No
Hospital Course
Primary care physician: Raul Thomas
Outpatient slot editor: Keshav Davila
Inpatient consultants: [facility] Cardiology
Procedures:
1. Redo sternotomy for mitral valve repair, tricuspid valve repair, left atrial maze using cryoablation, CABG x 1, atrial septal defect closure
Primary Diagnosis:
1. 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
Secondary Diagnoses:
1. CAD s/p CABG x 2 (2019)
2. Paroxysmal atrial fibrillation, status post ablation and antiarrhythmic medication, on longstanding anticoagulation
2. 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
3. Functional tricuspid valve insufficiency secondary to longstanding atrial fibrillation and mitral valve insufficiency
4. Hyperlipidemia
5. Hypertension
6. Asthma
7. Acute on chronic congestive heart failure with EF 45% on preoperative ORLIN compared to previous 60% outpatient
8. 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
9. Prediabetes (A1C 5.8)
10. Acute surgical blood loss anemia-expected (no PRBC transfusion required)
11. Acute intraop thrombocytopenia (transfused 1 plts)
12. HFrEF (EF 40-45%)
13. Acute postop hematuria (stable without clots, no CBI per Urology)
14. Acute postop superior median sternotomy small hematoma
HPI: 78-year-old male was electively admitted on 12/17/2023 for redo sternotomy for mitral valve and tricuspid valve repair, CABG, atrial septal defect closure, and left atrial maze.
Hospital course: �Patient underwent redo sternotomy for complex mitral valve repair #40 mm band annuloplasty, 5 pairs of CV 4 [place]-Tyler placed to going to the anterior leaflet, cleft closure between P1/P2 and P2/P3, free edge remodeling of the
posterior leaflet, tricuspid valve repair #34 mm band annuloplasty, left atrial maze using cryoablation, CABG x 1 [saphenous vein graft to distal RCA], and atrial septal defect closure by Dr. Messi Cerrato. Patient received 1 pool of platelets
intraoperatively for thrombocytopenia. [place] was unable to be floated into adequate position and was removed in the immediate postoperative period. Urology was consulted for postoperative hematuria and no clots were revealed upon bladder catheter
flushing. No continuous bladder irrigation was required and urine cleared by postoperative day #1. Patient was extubated at 2110 on day of surgery. On postoperative day #1, patient was weaned off dobutamine. Beta-clarita and amiodarone were held
for Mobitz type I. Atrial wires were pulled on postoperative day 2 due to lack of capture. Postoperative transthoracic echo was completed on 12/18 and reported improvement of ejection fraction to 55% with mitral valve gradients 6/2mmHg, and trace
mitral regurgitation. No tricuspid regurgitation with tricuspid valve mean gradient of 1 mmHg. Patient's rhythm was monitored and reevaluated to assess pacemaker need. Consultation with electrophysiology slot editor on 12/19 determined no need
for permanent pacer as rhythm remained Mobitz type I. Mediastinal chest tubes were removed. Rhythm Star monitor was ordered by cardiology and patient will return device as instructed. On postoperative day #4, temporary ventricular wires were
clipped to skin level and Xarelto with aspirin (for CABG and DVT history) was resumed per discussion with Dr. Cerrato.
Home medication changes:
Metoprolol stopped due to Mobitz type I rhythm
Discharge Plan
-
Patient Disposition: Home (Routine Discharge)
Discharge Diagnosis/Procedures: redo mitral and tricuspid repair, CABG, MAZE, ASD closure
Condition: Good
Diet: Low Cholesterol and Low Sodium
Activity: No strenuous activity
Driving Restrictions: Not until seen by your Dr
Bathing Restrictions: OK to Shower
Other Services: Cardiac Rehab
Specialty Instructions: Weigh Daily- Call MD for wt gain/loss 3 lbs overnight/5 lbs in 1 week
Referrals:
CT Transitional Care Nurse [Outside] (The Cardiothoracic Transitional Care Nurse will call you to set up a visit in 1-2 days.)
[facility]. Cardiac Rehab [Outside] - 01/28/24 11:00 am
(Cardiac Rehab Orientation appointment is on Saturday01/28/24 at 11AM
The Cardiac Rehab gym is located on the first floor of the [facility].)
Afua Guzman CRNP [Specified Professional Personl] - 01/20/24 10:00 am
Messi Cerrato MD [Active] - 01/15/24 2:15 pm
Raul Adler DO [Family Provider] -
Prescriptions:
New
pantoprazole 40 mg Tablet,Delayed Release (Dr/Ec)
40 mg PO DAILY Qty: 30 1RF
gabapentin 100 mg Capsule
100 mg PO TID Qty: 30 0RF
Continued
lutein 20 MG tablet
20 mg PO DAILY
aspirin 81 MG tablet,delayed release (DR/EC)
81 mg PO DAILY
eqpbswrhtoyw-tqrnwckf-eplptc Tablet
1 tab PO DAILY
Xarelto 20 mg Tablet
20 mg PO QPM
furosemide [Lasix] 20 mg tablet
20 mg PO MOWEFR Qty: 12 6RF
acetaminophen 500 mg Tablet
500 mg PO QID PRN (Reason: pain)
omega-3 acid ethyl esters [Lovaza] 1 gram Capsule
2 cap PO BID
guaifenesin [Mucinex] 600 mg Tablet Extended Release 12hr
600 mg PO Q12H PRN (Reason: congestion)
lisinopril 20 mg Tablet
20 mg PO BID
tadalafil [Cialis] 10 mg Tablet
10 mg PO DAILY
Discontinued
metoprolol succinate 25 mg Tablet Extended Release 24 Hr
12.5 mg PO DAILY Qty: 30 3RF
Discharge Orders:
Discharge Patient (As Directed); Ordered 12/21/23
Ordered By: Yaneth Vyas
Care Plan Goals
Care Plan Goals:
Problem: Readiness for enhanced knowledge related to diagnosis and treatment plan
Goal: Understand your diagnosis and treatment plan needs, including medications if applicable.
Instructions: Know your diagnosis, underlying causes and treatment plan options, including medications if applicable. Consult with your health care team to learn about your diagnosis and treatment plan, including medications if applicable.
Discharge Date and Time
Print Language: PUERTO RICAN
--- NOTE | 2023-12-21 14:16 | PTCARENOTE ---
Discharge instructions thoroughly reviewed w/patient, including medication list, follow up visits, all questions answered. Patient wearing Rhythm Star device, verbalizes understanding of use. PIV x 2 removed. Patient and all belongings transported
to waiting vehicle for d/c home.
== END 2023-12-21 15:00 | disposition home or self-care (01) | DRG 219 ==
LOC: CVICU 04:53
PROVIDERS: Anesthesiology; Physician Assistant Surgical; ADMITTING PHYSICIAN Thoracic Surgery (Cardiothoracic Vascular Surgery); CONSULT PHYSICIAN Internal Medicine Critical Care Medicine; CONSULT PHYSICIAN Urology; FAMILY PHYSICIAN Internal Medicine
PROC: 30233R1 Transfusion of Nonautologous Platelets into Peripheral Vein, Percutaneous Approach (ICD-10-PCS; 2023-12-17)
PROC: 02Q50ZZ Repair Atrial Septum, Open Approach (ICD-10-PCS; 2023-12-17)
PROC: 06BP4ZZ Excision of Right Saphenous Vein, Percutaneous Endoscopic Approach (ICD-10-PCS; 2023-12-17)
PROC: 021009W Bypass Coronary Artery, One Artery from Aorta with Autologous Venous Tissue, Open Approach (ICD-10-PCS; 2023-12-17)
PROC: 02UJ0JZ Supplement Tricuspid Valve with Synthetic Substitute, Open Approach (ICD-10-PCS; 2023-12-17)
PROC: 02UG0JZ Supplement Mitral Valve with Synthetic Substitute, Open Approach (ICD-10-PCS; 2023-12-17)
PROC: 02580ZZ Destruction of Conduction Mechanism, Open Approach (ICD-10-PCS; 2023-12-17)
PROC: 02NN0ZZ Release Pericardium, Open Approach (ICD-10-PCS; 2023-12-17)
PROC: 5A1221Z Performance of Cardiac Output, Continuous (ICD-10-PCS; 2023-12-17)
PROC: B24BZZ4 Ultrasonography of Heart with Aorta, Transesophageal (ICD-10-PCS; 2023-12-17)
DX: I08.1 Rheumatic disorders of both mitral and tricuspid valves (principal); I50.23 Acute on chronic systolic (congestive) heart failure; I31.0 Chronic adhesive pericarditis; D68.51 Activated protein C resistance; D62 Acute posthemorrhagic anemia; L76.32 Postprocedural hematoma of skin and subcutaneous tissue following other procedure; J98.11 Atelectasis; J90 Pleural effusion, not elsewhere classified; I48.19 Other persistent atrial fibrillation; I25.10 Atherosclerotic heart disease of native coronary artery without angina pectoris; E78.2 Mixed hyperlipidemia; I11.0 Hypertensive heart disease with heart failure; J45.909 Unspecified asthma, uncomplicated; M10.9 Gout, unspecified; M48.02 Spinal stenosis, cervical region; N40.0 Benign prostatic hyperplasia without lower urinary tract symptoms; R31.0 Gross hematuria; I25.82 Chronic total occlusion of coronary artery; R73.03 Prediabetes; D75.838 Other thrombocytosis; Y83.2 Surgical operation with anastomosis, bypass or graft as the cause of abnormal reaction of the patient, or of later complication, without mention of misadventure at the time of the procedure; E66.9 Obesity, unspecified; Z79.01 Long term (current) use of anticoagulants; Z79.899 Other long term (current) drug therapy; Z95.1 Presence of aortocoronary bypass graft; Z86.718 Personal history of other venous thrombosis and embolism; Z68.29 Body mass index [BMI] 29.0-29.9, adult; E78.1 Pure hyperglyceridemia; Z82.49 Family history of ischemic heart disease and other diseases of the circulatory system
CPT/HCPCS: 93308; 33259; 36415; 71045; 71046; 80048; 80053; 81003; 81015; 82248; 82330; 82565; 82805; 82810; 82947; 82962; 83036; 83735; 84132; 84302; 84520; 85014; 85018; 85025; 85027; 85049; 85347; 85384; 85576; 85610; 85730; 86850; 86900; 86901; 86920; 87070; 93005; 93312; 93320; 93321; 93325; 94002; J2916; P9045; P9073

== ENCOUNTER 2024-02-19 17:01 | Outpatient (RCR) | payer MEDICARE, SELFPAY | END 2024-02-19 23:59 | disposition home or self-care (01) | LOC: CRHB 17:01 | PROVIDERS: ATTENDING PHYSICIAN Internal Medicine Cardiovascular Disease | DX: I25.10 Atherosclerotic heart disease of native coronary artery without angina pectoris (principal); Z95.1 Presence of aortocoronary bypass graft; Z95.4 Presence of other heart-valve replacement | CPT/HCPCS: G0422; G0423 ==

== ENCOUNTER → 2024-02-24 14:28 | Outpatient (REF) | payer MEDICARE, SELFPAY ==
[2024-02-24 16:34] LABS: Blood Urea Nitrogen 31 mg/dl (9-20); Calcium 9.7 mg/dl (8.4-10.2); Carbon Dioxide 24 mmol/L (22-30); Chloride 104 mmol/L (98-107); Glucose 97 mg/dl (70-99); Magnesium 1.9 mg/dl (1.6-2.3); Potassium 5.5 mmol/L (3.5-5.1); Sodium 135 mmol/L (135-145); eGFR > 60.00
== END ==
LOC: REG 14:28
PROVIDERS: ATTENDING PHYSICIAN Internal Medicine Cardiovascular Disease; FAMILY PHYSICIAN Internal Medicine
DX: I48.0 Paroxysmal atrial fibrillation (principal); I10 Essential (primary) hypertension
CPT/HCPCS: 36415; 80048; 83735

== ENCOUNTER → 2024-03-11 15:20 | Outpatient (REF) | payer MEDICARE, SELFPAY ==
[2024-03-11 16:03] LABS: Blood Urea Nitrogen 28 mg/dl (9-20); Calcium 9.9 mg/dl (8.4-10.2); Carbon Dioxide 26 mmol/L (22-30); Chloride 104 mmol/L (98-107); Glucose 101 mg/dl (70-99); Potassium 4.8 mmol/L (3.5-5.1); Sodium 140 mmol/L (135-145); eGFR > 60.00
== END ==
LOC: REG 15:20
PROVIDERS: ATTENDING PHYSICIAN Internal Medicine Cardiovascular Disease; FAMILY PHYSICIAN Internal Medicine
DX: I10 Essential (primary) hypertension (principal); E78.5 Hyperlipidemia, unspecified
CPT/HCPCS: 36415; 80048

== ENCOUNTER 2024-03-18 16:30 | Outpatient (RCR) | payer MEDICARE, SELFPAY | END 2024-03-18 23:59 | disposition home or self-care (01) | LOC: CRHB 16:30 | PROVIDERS: ATTENDING PHYSICIAN Internal Medicine Cardiovascular Disease | DX: I25.10 Atherosclerotic heart disease of native coronary artery without angina pectoris (principal); Z95.1 Presence of aortocoronary bypass graft; Z95.4 Presence of other heart-valve replacement | CPT/HCPCS: G0422 ==

== ENCOUNTER 2024-04-20 16:24 | Outpatient (RCR) | payer MEDICARE, SELFPAY | END 2024-04-20 23:59 | disposition home or self-care (01) | LOC: CRHB 16:24 | PROVIDERS: ATTENDING PHYSICIAN Internal Medicine Cardiovascular Disease | DX: I25.10 Atherosclerotic heart disease of native coronary artery without angina pectoris (principal); Z95.1 Presence of aortocoronary bypass graft; Z95.4 Presence of other heart-valve replacement | CPT/HCPCS: G0422 ==

== ENCOUNTER 2024-05-20 16:35 | Outpatient (RCR) | payer MEDICARE, SELFPAY | END 2024-05-21 13:38 | disposition home or self-care (01) | LOC: CRHB 16:35 | PROVIDERS: ATTENDING PHYSICIAN Internal Medicine Cardiovascular Disease | DX: I25.10 Atherosclerotic heart disease of native coronary artery without angina pectoris (principal); Z95.1 Presence of aortocoronary bypass graft; Z95.4 Presence of other heart-valve replacement | CPT/HCPCS: G0422 ==

== ENCOUNTER → 2024-06-09 11:27 | Outpatient (REF) | payer MEDICARE, SELFPAY ==
[2024-06-09 13:55] LABS: D-Dimer 0.59 ug/mlFEU (0.00-0.50)
[2024-06-11 21:39] LABS: Anti-Thrombin III Activity 114 % (76-128)
[2024-06-11 23:47] LABS: Anti-Xa Qualitative Interp Present (Not Present); Anticoagulant Med Neutralizati DOAC-Stop (Not Performed); Hexagonal Phospholipid Confirm Not Performed s (<=7.9); Neutralized PTT-LA Ratio Not Performed (<=1.20); Neutralized dRVTT Screen Ratio 1.11 (<=1.20); PTT-LA Ratio 1.02 (<=1.20); Prothrombin Time 16.4 s (12.0-15.5); Thrombin Time Not Performed s (<=19.5); dRVTT 1.1 Mix Ratio Not Performed (<=1.20); dRVTT Confirmation Ratio Not Performed (<=1.20); dRVTT Screen Ratio 1.88 (<=1.20)
[2024-06-12 01:32] LABS: Beta-2-Glycoprotein I Ab. IgA <10 SAU (<=20); Beta-2-Glycoprotein I Ab. IgG <10 SGU (<=20); Beta-2-Glycoprotein I Ab. IgM <10 SMU (<=20)
[2024-06-12 08:20] LABS: Cardiolipin IgA Antibody <10 APL (<=11); Cardiolipin IgM Antibody <10 MPL (<=12); Cardiolipin Igg Antibody <10 GPL (<=14)
== END ==
LOC: REG 11:27
PROVIDERS: ATTENDING PHYSICIAN Internal Medicine Hematology & Oncology; FAMILY PHYSICIAN Internal Medicine
DX: I82.409 Acute embolism and thrombosis of unspecified deep veins of unspecified lower extremity (principal)
CPT/HCPCS: 36415; 85300; 85379; 85610; 85613; 85730; 86146; 86147

== ENCOUNTER → 2024-06-22 13:28 | Outpatient (REF) | payer MEDICARE, SELFPAY | LOC: RCS 13:28 | PROVIDERS: ATTENDING PHYSICIAN Thoracic Surgery (Cardiothoracic Vascular Surgery); FAMILY PHYSICIAN Internal Medicine | DX: Z98.890 Other specified postprocedural states (principal) | CPT/HCPCS: 93306 ==

== ENCOUNTER → 2025-02-04 09:33 | Outpatient (REF) | payer MEDICARE, SELFPAY ==
[2025-02-04 10:49] LABS: Hematocrit 42.8 % (39.0-52.0); Hemoglobin 14.6 g/dL (13.0-18.0); Mean Corp Hgb Conc. 34.1 g/dL (33.0-37.0); Mean Corpuscular Volume 92.6 fL (80.0-94.0); Nucleated Red Blood Cells % 0 % (-); Platelet Count 215 10^3/uL (130-400); Red Cell Dist. Width 12.7 % (11.5-14.5)
[2025-02-04 10:54] LABS: Urine Character Clear (Clear)
[2025-02-04 11:21] LABS: ALT (SGPT) 21 U/L (0-50); AST (SGOT) 28 U/L (17-59); Albumin 4.6 g/dl (3.5-5.0); Alkaline Phosphatase 48 U/L (38-126); Blood Urea Nitrogen 32 mg/dl (9-20); Calcium 9.7 mg/dl (8.4-10.2); Carbon Dioxide 28 mmol/L (22-30); Chloride 103 mmol/L (98-107); Glucose 95 mg/dl (70-99); HDL Cholesterol 39 mg/dl; LDL Cholesterol, Calculated 206 mg/dl; Potassium 4.8 mmol/L (3.5-5.1); Sodium 136 mmol/L (135-145); Total Protein 7.5 g/dl (6.3-8.2); Very Low Density Lipoprotein 25 mg/dl (0-30); eGFR > 60.00
[2025-02-04 11:46] LABS: PSA, Total - Screen 1.03 ng/ml (0.0-4.0); TSH 2.76 uIU/ml (0.47-4.68)
== END ==
LOC: REG 09:33
PROVIDERS: ATTENDING PHYSICIAN Internal Medicine
DX: E78.2 Mixed hyperlipidemia (principal); I48.0 Paroxysmal atrial fibrillation; R42 Dizziness and giddiness; I10 Essential (primary) hypertension; Z12.5 Encounter for screening for malignant neoplasm of prostate
CPT/HCPCS: 36415; 80053; 80061; 81003; 84443; 85025; G0103

== ENCOUNTER 2025-03-01 06:26 | Day surgery (SDC) | payer MEDICARE, SELFPAY | END 2025-03-01 14:29 | disposition home or self-care (01) | LOC: GI 06:26 | PROVIDERS: ATTENDING PHYSICIAN Student in an Organized Health Care Education/Training Program; FAMILY PHYSICIAN Internal Medicine | DX: Z12.11 Encounter for screening for malignant neoplasm of colon (principal); K57.30 Diverticulosis of large intestine without perforation or abscess without bleeding; K64.8 Other hemorrhoids; D12.0 Benign neoplasm of cecum; D12.2 Benign neoplasm of ascending colon; D12.3 Benign neoplasm of transverse colon; Z86.0100 Personal history of colon polyps, unspecified | CPT/HCPCS: 45385; 45380; 88305 ==

== ENCOUNTER → 2025-04-13 09:32 | Outpatient (REF) | payer MEDICARE, SELFPAY ==
[2025-04-13 11:15] LABS: Hematocrit 40.6 % (39.0-52.0); Hemoglobin 13.7 g/dL (13.0-18.0); Mean Corp Hgb Conc. 33.7 g/dL (33.0-37.0); Mean Corpuscular Volume 91.9 fL (80.0-94.0); Nucleated Red Blood Cells % 0 % (-); Platelet Count 219 10^3/uL (130-400); Red Cell Dist. Width 12.9 % (11.5-14.5)
[2025-04-13 11:16] LABS: INR 1.23; PT 15.8 Sec (11.4-14.6)
[2025-04-13 11:24] LABS: ALT (SGPT) 21 U/L (0-50); AST (SGOT) 28 U/L (17-59); Albumin 4.6 g/dl (3.5-5.0); Alkaline Phosphatase 43 U/L (38-126); Blood Urea Nitrogen 23 mg/dl (9-20); Calcium 9.9 mg/dl (8.4-10.2); Carbon Dioxide 29 mmol/L (22-30); Chloride 105 mmol/L (98-107); Glucose 73 mg/dl (70-99); Magnesium 1.9 mg/dl (1.6-2.3); Potassium 4.4 mmol/L (3.5-5.1); Sodium 141 mmol/L (135-145); Total Protein 7.3 g/dl (6.3-8.2); eGFR > 60.00
== END ==
LOC: SDSPAT 09:32
PROVIDERS: ATTENDING PHYSICIAN Internal Medicine Cardiovascular Disease; FAMILY PHYSICIAN Internal Medicine
DX: I48.0 Paroxysmal atrial fibrillation (principal)
CPT/HCPCS: 36415; 80053; 83735; 85025; 85610; 86850; 86900; 86901; 93005

== ENCOUNTER 2025-04-21 07:33 | Day surgery (SDC) | payer MEDICARE, SELFPAY ==
[2025-04-13 10:04] VITALS: BMI 28.7
[2025-04-21] VITALS (10 sets, daily range): BP systolic 127–167; BP diastolic 74–121; BMI 27.7
[2025-04-21] MEDS: TYLENOL 1000 MG PO (09:01)
--- NOTE | 2025-04-21 10:11 | ITS.CL.ABL ---
[employer]ist [employer] - Ablation
Ablation
Procedure Report:
ELECTROPHYSIOLOGIC STUDY AND POSSIBLE ABLATION
DATE: April 21, 2025
Primary Care Provider: Dr. Raul Thomas
INDICATION:
Symptomatic Atrial Fibrillation and atrial tachycardia.
Paroxysmal
HISTORY: See H and P.
Symptomatic AF, poorly controlled with attempted medical therapy
HAS-BLED: 2
Age
Antiplatelet Therapy
CHADSVASc = 5 (CHF, HTN, Age, Vasc Dz)
PRESENTING RHYTHM: AT at 300 ms cycle length
HISTORY: See H and P.
Symptomatic AF, poorly controlled with attempted medical therapy.
Mr Blair He has h/o AF, CAD and valvular disease.
He had�CRYO PVI 11/30/11.
He underwent CABG X 2 with FLORES to LAD and vein to OM1 on 05/05/20.
Due to recurrent symptomatic AF he underwent repeat catheter�ablation June 25, 2022 and again on��11/21/2022.�
He was found to have progressively worsening and symptomatic valvular disease and he was admitted to from 12/17/23-12/21/23� undergoing redo sternotomy with complex mitral valve repair [40 mm band annuloplasty, 5 pairs of CV 4 [place]-Tyler placed to
going to the anterior leaflet, cleft closure between P1/P2 and P2/P3, free edge remodeling of the posterior leaflet] as well as�Tricuspid valve repair [34 mm band annuloplasty],�Left atrial maze (2023)�using cryoablation,�
CABG x 1 [aorto to reverse saphenous vein graft to distal RCA] and�ASD closure
He has recurred with symptomatic paroxysmal atrial arrhythmias which include atrial tachycardia and presents today for mapping and ablation.
ANTICOAGULATION: Rivaroxaban 20 mg daily
'TIME-OUT': called and confirmed.
SEDATION/ANESTHESIA: provided via the anesthesia department using general anesthesia.
PROCEDURE:
Ultrasound Guidance with real-time visualization of needle insertion and vessel patency performed by nv for femoral venous Vascular Access.
Under real-time US guidance, the needle was advanced with negative pressure into the vein. The needle was seen entering the vessel lumen with a good return of dark red flow, the syringe was removed, non-pulsatile, dark red blood low was noted and
the wire was passed without difficulty, then the needle was removed. US confirmed the wire was in the vein, not going into an artery,
Images were taken and saved for the patient's permanent record. Imaging findings typical femoral venous anatomy. Direct visualization of needle puncture into the femoral vein was observed and recorded.
A decapolar CS catheter was placed within the CS for mapping and pacing.
The intracardiac ultrasound catheter was positioned in the RA for continuous intracardiac ultrasound imaging.
Entrainment pacing demonstrated that the right atrium is outside the tachycardia circuit.
Heparin bolus and infusion to target ACT at 300 -350 seconds was administered. Transseptal puncture was performed. This entailed advancing a sheath with dilator into the superior vena cava and withdrawing both (monitoring intracardiac ultrasound,
fluoroscopy and tip pressure) with the tip oriented toward the atrial septum. The fossa ovalis was engaged (indicated by sudden displacement of the sheath tip as well as tenting of the fossa seen on intracardiac ultrasound).
Transseptal puncture was performed. Left atrial catheter position was confirmed by echocardiographic imaging, pressure monitoring (LA mean pressure 11 mm Hg) and fluoroscopy. The sheath was advanced over the dilator and positioned in the left
atrium.
The VideoCarea multipolar mapping/ablation Sphere-9 catheter was positioned through the transseptal sheath for high density mapping.
Geometry and voltage mapping was performed using the VideoCarea mapping system for three-dimensional electroanatomical mapping.
Catheter positioning was guided and confirmed using both I.C.E. and fluoroscopy.
High density electroanatomical three-dimensional mapping demonstrated the presence of 4 PVs: LSPV, LIPV, RSPV, RIPV.
Activation mapping along with entrainment maneuvers defined a macro reentrant left atrial circuit rotating down the anterior ridge of the left atrial appendage and up the ridge between the left atrial appendage and the left sided pulmonary veins.
An area of slower conduction between the left inferior pulmonary vein, the inferior border of the left atrial appendage ostium and the mitral valve annulus was identified.
Pulsed electric field energy delivery to this area immediately slowed the tachycardia to 330 ms. Subsequent lesion slow to 350 ms. Further energy delivery terminated the tachycardia to sinus rhythm. Several more energy applications were given at
this isthmus of tissue. High output pacing demonstrated inability to capture.
Voltage and activation mapping of the pulmonary veins finds that there is reconnection at the left superior pulmonary vein towards its posterior superior quadrant.
Pulsed electric field energy was delivered reisolating the pulmonary vein.
Additionally, there is incomplete isolation of the posterior wall of the left atrium towards the dome of the left atrium just outside the antrum of the left superior pulmonary vein.
Pulsed electric field energy delivery to this area was able to effectively isolate the posterior wall of the left atrium.
After accomplishing pulmonary venous isolation, and left atrial posterior wall isolation, mapping identified additional areas likely to be extra PV contributors to atrial fibrillation. These areas demonstrated patchy low voltage as well as complex
fractionated electrograms. These areas can be sites for the formation of rotors which can drive and maintain atrial fibrillation. These areas are known to be significant contributors to initiation and perpetuation of atrial fibrillation.
Additional energy applications/additional ablation sets targeted extra PV contributors to atrial fibrillation.
The ridge of tissue between the left atrial appendage and the left sided pulmonary veins (Ligament of Karl )
These areas were ablated using pulsed electric field energy eliminating the extra PV contributors to atrial fibrillation.
Post ablation mapping finds entrance and exit block at each of the pulmonary veins (LSPV, LIPV, RSPV, RIPV), the LA posterior wall and at the additional line at the Ligament of Marshal rendering the sites no longer able to contribute to atrial
fibrillation.
Programmed electrostimulation including burst atrial pacing as well the delivery of decremental extrastimuli down to atrial effective refractory period and no sustained arrhythmias could be induced.
I.C.E. :
Pre-Ablation Post-Ablation
LVEF: 55 % 55 %
WMA: none none
Pericardial effusion: none none
LA Pressure 11 10
COMPLICATIONS:
None
SUMMARY:
- Mapping and ablation to isolate the PVs resulting in electrical isolation of the pulmonary veins
- Additional AF ablation sets X 2 after PVI (LA posterior wall, ligament of Karl) resulting in elimination of the targeted extra PV contributors to atrial fibrillation
- Mapping and ablation of second tachycardia (macro reentrant left atrial flutter) rendering it noninducible with programmed electrical stimulation
- 3-D Electroanatomical Mapping
- Intracardiac Ultrasound
- Ultrasound guidance for vascular access
Post ablation, I discussed today's findings and results with the patient's significant other, Colt.
RECOMMENDATIONS:
- Observe in monitored bed.
- Maintain oral anticoagulation.
- Office visit with me will be scheduled for August 26, 2025.
Copy to:
Dr. Raul Thomas
[2025-04-21 11:16] LABS: ACT-LR - POC 316 Seconds (116-155)
[2025-04-21 12:42] LABS: ACT-LR - POC > 397 Seconds (116-155)
--- NOTE | 2025-04-21 17:26 | W.PN.UPDATE ---
Update Note
Progress Note Update
79 yo WM s/p PVI (same day) He denies cp, sob, marlin diet, EKG SR LBBB, R fem site c/d/i no HT. He will resume Xarelto tonight and continue metoprolol. Activity restrictions reviewed. He will f/u Dr. Cantu in 3 mo. He is for d/c home after 430p.
== END 2025-04-21 16:32 | disposition home or self-care (01) ==
LOC: CATH 07:33
PROVIDERS: ATTENDING PHYSICIAN Internal Medicine Cardiovascular Disease; FAMILY PHYSICIAN Internal Medicine
DX: I47.19 Other supraventricular tachycardia (principal); I48.0 Paroxysmal atrial fibrillation; Z95.1 Presence of aortocoronary bypass graft; I11.0 Hypertensive heart disease with heart failure; E78.5 Hyperlipidemia, unspecified; I25.10 Atherosclerotic heart disease of native coronary artery without angina pectoris; I50.32 Chronic diastolic (congestive) heart failure
CPT/HCPCS: C1733; 85347; 93005; 93655; 93656; 93657; C1730; C1766; C1769; C1892; C1894

== ENCOUNTER → 2025-06-29 14:46 | Outpatient (REF) | payer MEDICARE, SELFPAY | LOC: RCS 14:46 | PROVIDERS: ATTENDING PHYSICIAN Thoracic Surgery (Cardiothoracic Vascular Surgery); FAMILY PHYSICIAN Internal Medicine | DX: Z98.890 Other specified postprocedural states (principal) | CPT/HCPCS: 93306 ==